=== PATIENT | female | born 1960 | race Caucasian/White ===

== ENCOUNTER 2017-05-05 18:26 | Inpatient (IN) ==
[2017-05-05] MEDS ORDERED: SALINE FLUSH 10ml SYRINGE IVF PRN (19:11)
[2017-05-05] MEDS ORDERED: DiltiaZEM 25 MG/5 ML INJECTION IVP ONE ×2 (19:40→20:52)
--- NOTE | 2017-05-05 19:47 | Emergency Department Report ---
General Adult HPI - General Chief complaint: Medical Emergency Stated complaint: High bp Time Seen by Provider: 05/05/17 18:57 Source: patient Mode of arrival: ambulatory Limitations: no limitations - History of Present Illness HPI narrative: Patient presents with a 2 day history of elevated blood pressure, low blood pressure, and an irregular fast pulse. Patient has had irregular pulses and irregular blood pressures at home, has a ringing in her ears, and is feeling "ill." Patient has had similar episodes occasionally, but never lasting this long nor this intense. Patient has no significant history that she knows of of irregular pulse her atrial fibrillation , but does see Dr. Ruiz routinely. - Related Data Home Medications Medication Instructions Recorded Confirmed Potassium Chloride 10 meq PO BID #0 10/30/10 05/05/17 Labetalol HCl 300 mg PO BID #0 08/07/13 05/05/17 Glucosamine HCl/Chondr Graff A Na 1 tab PO BID #0 04/08/15 05/05/17 [Osteo Bi-Flex Caplet] B2/Vits A,C,E/Lut/Zeaxanth/Min 1 tab PO BID #0 02/21/16 05/05/17 [Icaps Tablet] Indomethacin 50 mg PO DAILY #0 02/21/16 05/05/17 ALPRAZolam [Xanax] 1 mg PO HS 04/18/17 05/05/17 Acetaminophen [Acetaminophen Extra 1,000 mg PO Q6H PRN 04/18/17 05/05/17 Strength] Aspirin [Aspirin EC] 81 mg PO HS 04/18/17 05/05/17 Cholecalciferol (Vitamin D3) 2,000 unit PO HS 04/18/17 05/05/17 [Vitamin D3] Citalopram [Celexa] 10 mg PO HS 04/18/17 05/05/17 Hydralazine HCl 50 mg PO BID 04/18/17 05/05/17 Losartan [Cozaar] 100 mg PO HS 04/18/17 05/05/17 Multivit-Min/FA/Lycopen/Lutein 1 tab PO DAILY 04/18/17 05/05/17 [Centrum Silver Tablet] Aspirin/Acetaminophen/Caffeine 2 tab PO Q8H PRN 05/05/17 05/05/17 [Excedrin Migraine Caplet] Allergies Allergy/AdvReac Type Severity Reaction Status Date / Time nitrofurantoin Allergy Mild RASH Verified 05/05/17 17:35 Penicillins Allergy Mild RASH Verified 05/05/17 17:35 droperidol AdvReac Severe Severe Verified 05/05/17 17:35 Chemical Imbalance and Mental Problems codeine AdvReac Mild NAUSEA Verified 05/05/17 17:35 Review of Systems All systems: reviewed and negative except as stated PFSH Patient Stated Medical History Macular Degeneration Yes Other HEENT Yes: wears glasses Hypertension Yes Other Cardiology Yes: low potassium Sleep Apnea Yes Other Respiratory Yes: pulmonary htn Osteoarthritis Yes Depression Yes - Social History Smoking status: Never smoker Physical Exam - Limitations Limitations: no limitations - General General appearance: alert - Normal Exams: Head:: Normocephalic without trauma Eyes:: Pupils are PERRLA w/ EOMI, No scleral icterus, irritation, or foreign bodies noted ENMT:: No facial trauma, nasal exudates, pharyngeal erythema, or exudates are noted Neck:: Full range of motion, without adenopathy, JVD, bruits or thyromegaly Chest/Respirations:: Clear all velasco, with good airflow, and symmetry bilaterally Abdomen:: Bowel sounds positive, soft, non-tender, non-distended, no hepatosplenomegaly, masses or bruits noted Lymphatic:: No lymphadenopathy, or lymphedema noted Musculoskeletal:: No tenderness, or deformity noted, good range of motion, all extremities Integumentary:: No rashes, hives, or bruising noted, hair and nails, without abnormality Neurological:: Patient is alert, and oriented, cranial nerves, motor/sensory/ cerebellar, exams w/o gross deficits, to observation Psychiatric:: Patient exhibits, appropriate attention, emotion and affect - Cardiovascular Cardiovascular exam: Present: tachycardia, irregular rhythm (irregularly irregular tachycardia), normal heart sounds. Absent: regular rate, normal rhythm Course Vital Signs Temperature 98.2 F 05/05/17 18:30 Pulse Rate 129 H 05/05/17 18:30 Respiratory Rate 20 05/05/17 18:30 Blood Pressure 220/100 H 05/05/17 18:30 Pulse Oximetry 100 05/05/17 18:30 Temperature 98.2 F 05/05/17 18:30 Pulse Rate 136 H 05/05/17 19:54 Respiratory Rate 24 05/05/17 19:54 Blood Pressure 160/69 H 05/05/17 19:54 Pulse Oximetry 95 05/05/17 19:54 Medical Decision Making - MDM Narrative Medical decision making narrative: Patient is in an irregular tachyarrhythmia on the monitor EKG shows atrial fibrillation with RVR Patient given 1 L normal saline and 20 mg Cardizem IV - no significant improvement. Patient given additional 25 mg Cardizem IV - CBC - normal CMP - normal TSH - normal Patient persists in nature fibrillation with rapid ventricular rate. Case is discussed with Dr. Villanueva - will start on Cardizem drip, give one dose Lovenox here in the ER. - Lab Data Result diagrams: 05/05/17 19:42 05/05/17 19:42 Lab Results 05/05/17 05/05/17 05/05/17 Range/Units 19:42 19:42 19:42 WBC 10.0 (4.5-11.0) T/MM3 RBC 4.33 (4.00-5.20) M/MM3 Hgb 12.6 (12-16) GM/DL Hct 39.1 (36-46) % MCV 90.3 (80-100) UM3 MCH 29.1 (26-34) UUG MCHC 32.2 (31-37) GM/DL RDW Std Deviation 46.1 (36.9-50.2) FL Plt Count 347 (130-400) T/MM3 MPV 9.3 L (9.4-12.4) UM3 Immature Gran % (Auto) 0.2 (0.0-0.5) % Neut % (Auto) 74.5 H (33-66) % Lymph % (Auto) 16.5 L (23-45) % [place]ack[place]ord % (Auto) 7.8 (0-9.0) % Eos % (Auto) 0.9 (0-4) % Baso % (Auto) 0.1 (0-2) % Neut # (Auto) 7.4 (1.8-7.7) T/MM3 Lymph # (Auto) 1.7 (1-4.8) T/MM3 [place]ord # (Auto) 0.8 (0-0.8) T/MM3 Eos # (Auto) 0.1 (0-0.5) T/MM3 Baso # (Auto) 0.0 (0-0.2) T/MM3 Abs Immat Gran (auto) 0.02 (0.00-0.03) T/MM3 Turbidity < 20 (0-20) Sodium 143 (134-144) MEQ/L Potassium 3.9 (3.6-5) MEQ/L Chloride 108 H (98-107) MEQ/L Carbon Dioxide 24 (22-30) MEQ/L Anion Gap 11 (5-15) MEQ/L BUN 20.0 H (7-17) MG/DL Creatinine 0.8 (0.7-1.2) MG/DL GFR Calculation 74 BUN/Creatinine Ratio 25 (6-26) RATIO Glucose 111 H (65-110) MG/DL Calculated Osmolality 279 (261-280) MOSM/KG Calcium 9.5 (8.4-10.2) MG/DL Total Bilirubin 0.50 (0.20-1.30) MG/DL Conjugated Bilirubin 0.00 (0.00-0.30) MG/DL Unconjugated Bilirubin 0.20 (0.00-1.1) MG/DL Icterus Index < 2 (0-7) AST 21 (14-36) U/L ALT 44 (9-52) U/L Alkaline Phosphatase 138 H (38-126) U/L Total Protein 7.9 (6.3-8.2) G/DL Albumin 4.6 (3.5-5.0) G/DL Globulin 3.3 (2.4-3.6) G/DL Albumin/Globulin Ratio 1.4 (1.1-2.2) RATIO TSH 1.19 (0.47-4.68) MIU/L Specimen Hemolysis < 15 (0-25) Disposition Clinical Impression: Atrial fibrillation with RVR Disposition: 02 To [facility] Acute Care Condition: Stable Prescriptions: No Action Glucosamine HCl/Chondr Graff A Na [Osteo Bi-Flex Caplet] 1 tab PO BID #0 Hydralazine HCl 50 mg PO BID ALPRAZolam [Xanax] 1 mg PO HS Citalopram [Celexa] 10 mg PO HS Cholecalciferol (Vitamin D3) [Vitamin D3] 2,000 unit PO HS Losartan [Cozaar] 100 mg PO HS Aspirin [Aspirin EC] 81 mg PO HS Multivit-Min/FA/Lycopen/Lutein [Centrum Silver Tablet] 1 tab PO DAILY Aspirin/Acetaminophen/Caffeine [Excedrin Migraine Caplet] 2 tab PO Q8H PRN PRN Reason: Migraine Headache Potassium Chloride 10 meq PO BID #0 Labetalol HCl 300 mg PO BID #0 B2/Vits A,C,E/Lut/Zeaxanth/Min [Icaps Tablet] 1 tab PO BID #0 Indomethacin 50 mg PO DAILY #0 Acetaminophen [Acetaminophen Extra Strength] 1,000 mg PO Q6H PRN PRN Reason: Pain Referrals: Chance Ruiz MD [Primary Care Provider] - Leyla Reyes MD [Family Provider] - - Seen By: physician
[2017-05-05] MEDS ORDERED: NS 1,000 ML IV ONE (20:24)
[2017-05-05] MEDS ORDERED: ENOXAPARIN 40 MG/0.4 ML INJECTION SQ ONE (21:40)
[2017-05-05 22:59] VITALS: BMI 55.9
[2017-05-05] MEDS ORDERED: ACETAMINOPHEN 500 MG TABLET PO PRN (23:13)
[2017-05-05] MEDS ORDERED: AMIODARONE 150 MG in NS 100 ML IV ONE (23:34)
[2017-05-05] MEDS ORDERED: HYDRALAZINE 25 MG TABLET PO SCH (23:39)
[2017-05-05] MEDS ORDERED: AMIODARONE 450 MG in NS 500ml 250 ML IV SCH (23:45)
[2017-05-06] MEDS: ENOXAPARIN 150 MG/ML INJECTION SQ SCH ×2 (00:43→08:40)
[2017-05-06] MEDS: CITALOPRAM 10 MG TABLET PO SCH ×2 (00:44→21:42)
[2017-05-06] MEDS: LOSARTAN 100 MG TABLET PO SCH ×2 (00:46→21:43)
[2017-05-06] MEDS: LABETALOL 100 MG TABLET PO SCH ×3 (00:46→21:42)
[2017-05-06] MEDS: DiltiaZEM Drip 125 MG in NS 125 ML IV SCH (01:25)
[2017-05-06] MEDS: ACETAMINOPHEN 325 MG TABLET PO PRN ×2 (03:31→18:34)
[2017-05-06] MEDS ORDERED: AMIODARONE 900 MG in NS 500ml 500 ML IV SCH (07:15)
[2017-05-06] MEDS ORDERED: HYDRALAZINE 25 MG TABLET PO SCH (08:00)
[2017-05-06] MEDS: INDOMETHACIN 25 MG CAPSULE PO SCH (08:39)
--- NOTE | 2017-05-06 08:54 | XRay Report ---
Indication: a fib PROCEDURE: XR chest 1V: Encounter: Initial Comparison: August 07, 2013 Findings: The lungs are stable in appearance without new focal airspace consolidation. There is no pleural effusion or pneumothorax. Eventration of the right hemidiaphragm. The heart size, pulmonary vascularity and mediastinal contours are unchanged. IMPRESSION: Stable appearance of the chest without acute cardiopulmonary disease. .
[2017-05-06] MEDS ORDERED: NON-FORMULARY MEDICATION 1 EACH EACH (Hydralazine Hcl [Hydralazine Hcl] 50 MG) PO SCH (09:00)
[2017-05-06] MEDS ORDERED: NON-FORMULARY MEDICATION 1 EACH EACH (Labetalol Hcl [Labetalol Hcl] 300 MG) PO SCH (09:00)
--- NOTE | 2017-05-06 10:17 | Cardiology History & Physical ---
History of Present Illness Chief complaint: SOA, palpitations HPI: Soren is a 57 year old female who is known to Dr. Ruiz's practice with a history of pulmonary HTN, PVCs, HTN and MARIBEL who presented with a 2 day history of elevated blood pressure, low blood pressure, and an irregular fast pulse. She has had irregular pulses and irregular blood pressures at home, has a ringing in her ears, and reported feeling "ill." She has had similar episodes occasionally, but never lasting this long nor this intense. She has no significant history that she knows of of irregular pulse or atrial fibrillation , but does see Dr. Ruiz routinely. She reports 2 weeks of fatigue with occasional fluttering in her chest, SOA and feeling ill worsened yesterday leading to her visit to the ED. She denies fever , chills, sore throat, cough, chest pain or pressure, N/V/D. Review of Systems - Constitutional Constitutional: Present: fatigue. Absent: chills, fever(s) - EENMT Eyes: Absent: change in vision Balance: Absent: vertigo Mouth/Throat: Absent: sore throat - Cardiovascular Cardiovascular: Present: palpitations, dyspnea on exertion. Absent: chest pain , syncope, orthopnea, edema Vascular: Absent: pedal edema - Respiratory Respiratory: Present: dyspnea, dyspnea on exertion - Gastrointestinal Gastrointestinal: Absent: abdominal pain, diarrhea, nausea, vomiting - Genitourinary Genitourinary: Absent: dysuria - Integumentary/Breasts Integumentary: Absent: rash - Neurological Neurological: Absent: dizziness - Endocrine Endocrine: Present: palpitations PFSH Patient Stated Medical History Macular Degeneration Yes Other HEENT Yes: wears glasses Hypertension Yes Other Cardiology Yes: low potassium Sleep Apnea Yes Other Respiratory Yes: pulmonary htn Osteoarthritis Yes Depression Yes Post Menopausal Yes Surgical History: C section X3. bladder surgery. Cholecystectomy Family History: Paternal grandmother - 50s, unknown heart problem Brother - younger than patient, she heard he had a heart attack but they do not speak - Social History Smoking status: Former smoker Quit date: 04/26/85 Substance use type: does not use Alcohol intake frequency: former alcohol drinker Household members: none Current occupational status: employed Current residence: Apartment/Private Home Medications Home Medications Medication Instructions Recorded Confirmed Type Potassium Chloride 10 meq PO BID #0 10/30/10 05/05/17 History Labetalol HCl 300 mg PO BID #0 08/07/13 05/05/17 History Glucosamine HCl/Chondr Graff A Na 1 tab PO BID #0 04/08/15 05/05/17 History [Osteo Bi-Flex Caplet] B2/Vits A,C,E/Lut/Zeaxanth/Min 1 tab PO BID #0 02/21/16 05/05/17 History [Icaps Tablet] Indomethacin 50 mg PO DAILY #0 02/21/16 05/05/17 History ALPRAZolam [Xanax] 1 mg PO HS 04/18/17 05/05/17 History Acetaminophen [Acetaminophen Extra 1,000 mg PO Q6H PRN 04/18/17 05/05/17 History Strength] Aspirin [Aspirin EC] 81 mg PO HS 04/18/17 05/05/17 History Cholecalciferol (Vitamin D3) 2,000 unit PO HS 04/18/17 05/05/17 History [Vitamin D3] Citalopram [Celexa] 10 mg PO HS 04/18/17 05/05/17 History Hydralazine HCl 50 mg PO BID 04/18/17 05/05/17 History Losartan [Cozaar] 100 mg PO HS 04/18/17 05/05/17 History Multivit-Min/FA/Lycopen/Lutein 1 tab PO DAILY 04/18/17 05/05/17 History [Centrum Silver Tablet] Aspirin/Acetaminophen/Caffeine 2 tab PO Q8H PRN 05/05/17 05/05/17 History [Excedrin Migraine Caplet] Allergies Allergy/AdvReac Type Severity Reaction Status Date / Time nitrofurantoin Allergy Mild RASH Verified 05/05/17 17:35 Penicillins Allergy Mild RASH Verified 05/05/17 17:35 droperidol AdvReac Severe Severe Verified 05/05/17 17:35 Chemical Imbalance and Mental Problems codeine AdvReac Mild NAUSEA Verified 05/05/17 17:35 Exam Vital signs: Temperature 98.5 F 05/06/17 00:00 Pulse Rate 78 05/06/17 08:00 Respiratory Rate 15 05/06/17 07:00 Blood Pressure 148/67 H 05/06/17 07:00 Pulse Oximetry 95 05/06/17 07:00 - Constitutional mild distress, morbidly obese, cooperative - Routine HEENT Exam Head: Present: normocephalic ENT: Present: mucous membranes moist - Routine Neck Exam Present: supple. Absent: JVD, carotid bruit - Routine Chest/Breast/Axilla Exam Chest wall: Absent: tenderness, pacemaker - Routine Respiratory Exam Present: decreased breath sounds (anteriorly), CTA bilaterally. Absent: rales, wheezes - Routine Cardiovascular Exam Present: RRR, no murmur. Absent: JVD - Routine Abdominal Exam Present: soft, normoactive bowel sounds - Routine Extremities Exam Present: no edema, pulses intact - Routine Skin Exam Present: intact, dry, warm - Routine Neurological Exam Present: alert, oriented X3 - Routine Psychiatric Exam Present: normal affect, anxious Results 05/07/17 04:36 05/07/17 04:36 Cardiac Enzymes 05/06/17 05/06/17 Range/Units 02:03 09:02 Troponin I < 0.012 < 0.012 (0-0.12) ng/ml CBC 05/06/17 Range/Units 09:02 WBC 7.9 (4.5-11.0) T/MM3 RBC 3.81 L (4.00-5.20) M/MM3 Hgb 11.3 L (12-16) GM/DL Hct 35.1 L (36-46) % Plt Count 291 (130-400) T/MM3 Comprehensive Metabolic Panel 05/06/17 Range/Units 02:03 Sodium 144 (134-144) MEQ/L Potassium 3.4 L (3.6-5) MEQ/L Chloride 109 H (98-107) MEQ/L Carbon Dioxide 27 (22-30) MEQ/L BUN 15.0 (7-17) MG/DL Creatinine 0.8 (0.7-1.2) MG/DL Glucose 109 (65-110) MG/DL Calcium 8.7 D (8.4-10.2) MG/DL Intake and Output 05/05/17 05/06/17 05/06/17 22:59 06:59 14:59 Intake Total 237.987 / 237.987 360 / 360 Output Total 200 / 200 200 / 200 Balance -200 / -200 37.987 / 37.987 360 / 360 Intake: IV 237.987 / 237.987 Amiodarone 150 mg In Ns 100 ml 103 / 103 @ 618 mls/hr IV O ONE Rx#: [id number] Amiodarone 450 mg In NS 500ml 134.987 / 134.987 250 ml @ 1 MG/MIN 33.33 mls/hr IV .[id number] [facility] Rx#:[id number] Oral 360 / 360 Output: Urine 200 / 200 200 / 200 Other: Weight 305 lb 12.498 oz 281 lb 12.012 oz Patient Weight 05/07/17 06:59 Weight 281 lb 12.012 oz - Imaging and Cardiology Imaging & Cardiology Narrative: Date of Exam: 05/05/17 Ordering Provider: Ana Ramirez APRN Type of Exam(s): XR chest 1V Reason for Exam(s): a fib Indication: a fib PROCEDURE: XR chest 1V: Encounter: Initial Comparison: August 07, 2013 Findings: The lungs are stable in appearance without new focal airspace consolidation. There is no pleural effusion or pneumothorax. Eventration of the right hemidiaphragm. The heart size, pulmonary vascularity and mediastinal contours are unchanged. IMPRESSION: Stable appearance of the chest without acute cardiopulmonary disease. Date of Exam: 05/06/17 Type of Exam(s): US echo doppler complete DATE OF PROCEDURE May 06, 2017 This is a two-dimensional echo with spectral Doppler, color-flow and M-mode. It was obtained in a patient with atrial fibrillation. Left atrium is dilated. Left ventricular end-diastolic dimension is normal. Left ventricular wall thickness is increased. LV systolic function is hyperdynamic with ejection fraction of about 75%. Right atrium is dilated. Right ventricle is normal. Aortic root dimension is normal. Mitral valve is morphologically normal with [id number] mitral regurgitation. Aortic valve appears to be normal. Tricuspid valve shows mild tricuspid regurgitation with moderate pulmonary hypertension with estimated pulmonary artery systolic pressure of 60. Pulmonary valve was not visualized well. There is no pericardial effusion. IMPRESSION 1. Technically difficult study. 2. Biatrial dilation. 3. Concentric left ventricular hypertrophy. 4. Hyperdynamic left ventricle with ejection fraction of 75%. 5. Ynrg-[id number]-bodnufne mitral regurgitation. 6. Mild tricuspid regurgitation with moderate pulmonary hypertension with estimated pulmonary artery systolic pressure of 60. 05/07/17 11:27 EKG interpretations - EKG EKG results cardiology: sinus rhythm Hospital Course This is a general summary of the patient's hospital course. For more details refer to the complete medical record. Time spent with patient: 25 - 35 minutes DVT Prophylaxis: Lovenox, Pradaxa Assessment and Plan - Attestation Attestation Narrative: 05/07/17 13:11 Recommendation After examining the patient I agree with the above assessment. I am involved in the formulation of the patient's plan of care. - Assessment and Plan (1) Atrial fibrillation with RVR Current visit: Yes Status: Acute Converted after Cardizem given in ER - Started on Amiodarone bolus and drip - Anticoagulated on Lovenox 1mg/kg SQ Q12h, change to Pradaxa 150mg BID - EKG obtained to confirm - Echo obtained to check for structural / valvular disease - Check TSH and Mag - DC IV Amiodarone and Start Flecainide 100mg po X1 then 50mg BID - EKG in AM (2) Pulmonary hypertension Current visit: Yes Status: Chronic (3) Ventricular premature depolarization Current visit: Yes Status: Chronic (4) Essential (primary) hypertension Current visit: Yes Status: Chronic Suboptimal control. Increase Hydralazine to TID, Continue Labetalol and Losartan. (5) Sleep apnea Current visit: Yes Status: Chronic Use home C-PaP, PCP manages (6) Morbid obesity with BMI of 50.0-59.9, adult Current visit: Yes Status: Chronic Dietary consult for nutritional education. Patient is motivated to lose weight. - Assessment and Plan A Fib RVR: Converted after Cardizem given in ER - Started on Amiodarone bolus and drip - Anticoagulated on Lovenox 1mg/kg SQ Q12h, change to Pradaxa 150mg BID - EKG obtained to confirm - Echo obtained to check for structural / valvular disease - Check TSH and Mag - DC IV Amiodarone and Start Flecainide 100mg po X1 then 50mg BID - EKG in AM HTN: Suboptimal control. Increase Hydralazine to TID, Continue Labetalol and Losartan. MARIBEL: Use home C-PaP, PCP manages
[2017-05-06] MEDS ORDERED: FLECAINIDE 100 MG TABLET PO ONE (11:26)
--- NOTE | 2017-05-06 15:51 | Echocardiogram ---
DATE OF PROCEDURE May 06, 2017 This is a two-dimensional echo with spectral Doppler, color-flow and M-mode. It was obtained in a patient with atrial fibrillation. Left atrium is dilated. Left ventricular end-diastolic dimension is normal. Left ventricular wall thickness is increased. LV systolic function is hyperdynamic with ejection fraction of about 75%. Right atrium is dilated. Right ventricle is normal. Aortic root dimension is normal. Mitral valve is morphologically normal with [id number] mitral regurgitation. Aortic valve appears to be normal. Tricuspid valve shows mild tricuspid regurgitation with moderate pulmonary hypertension with estimated pulmonary artery systolic pressure of 60. Pulmonary valve was not visualized well. There is no pericardial effusion. IMPRESSION 1. Technically difficult study. 2. Biatrial dilation. 3. Concentric left ventricular hypertrophy. 4. Hyperdynamic left ventricle with ejection fraction of 75%. 5. [id number] mitral regurgitation. 6. Mild tricuspid regurgitation with moderate pulmonary hypertension with estimated pulmonary artery systolic pressure of 60. MTDD
[2017-05-06] MEDS: HYDRALAZINE 25 MG TABLET PO SCH (18:26)
[2017-05-06] MEDS ORDERED: ALPRAZolam 1 MG TABLET PO SCH (21:00)
[2017-05-06] MEDS: FLECAINIDE 50 MG TABLET PO SCH (21:42)
[2017-05-06] MEDS ORDERED: HYDRALAZINE 20 MG/ML INJECTION IVP PRN (23:07)
[2017-05-07] MEDS: DiltiaZEM Drip 125 MG in NS 125 ML IV SCH (02:19)
[2017-05-07 07:27] VITALS: RESP 16; O2SAT 96
[2017-05-07] MEDS: FLECAINIDE 50 MG TABLET PO SCH (08:28)
[2017-05-07] MEDS: LABETALOL 100 MG TABLET PO SCH (08:28)
[2017-05-07] MEDS: HYDRALAZINE 25 MG TABLET PO SCH ×2 (08:28→12:06)
[2017-05-07] MEDS: INDOMETHACIN 25 MG CAPSULE PO SCH (08:28)
[2017-05-07 11:22] VITALS: BP 161/83; PULSE 78; TEMP 97.7
--- NOTE | 2017-05-07 11:31 | Discharge Summary ---
<Ana Ramirez - Last Filed: 05/07/17 11:28> Discharge Information Date of admission: 05/06/17 12:20 Anticipated date of discharge: 05/07/17 Attending Physician: Justin Villanueva MD Primary care physician: MD Leyla Amaro MD Consults: 05/07/17 10:58 Dietary Consult [CONS] Routine Comment: Reason For Exam: teaching for weight loss - Discharge Diagnosis (1) Atrial fibrillation with RVR Status: Acute (2) Pulmonary hypertension Status: Chronic (3) Ventricular premature depolarization Status: Chronic (4) Essential (primary) hypertension Status: Chronic (5) Sleep apnea Status: Chronic (6) Morbid obesity with BMI of 50.0-59.9, adult Status: Acute Atrial fibrillation - Laboratory Labs: 05/07/17 04:36 05/07/17 04:36 Laboratory Results - last 48 hr 05/05/17 05/05/17 05/05/17 16:42 16:42 19:42 WBC 10.0 RBC 4.33 Hgb 12.6 Hct 39.1 MCV 90.3 MCH 29.1 MCHC 32.2 RDW Std Deviation 46.1 Plt Count 347 MPV 9.3 L Immature Gran % (Auto) 0.2 Neut % (Auto) 74.5 H Lymph % (Auto) 16.5 L Runnels % (Auto) 7.8 Eos % (Auto) 0.9 Baso % (Auto) 0.1 Neut # (Auto) 7.4 Lymph # (Auto) 1.7 Runnels # (Auto) 0.8 Eos # (Auto) 0.1 Baso # (Auto) 0.0 Abs Immat Gran (auto) 0.02 Turbidity Sodium Potassium Chloride Carbon Dioxide Anion Gap BUN Creatinine GFR Calculation BUN/Creatinine Ratio Glucose Calculated Osmolality Calcium Magnesium 2.3 Total Bilirubin Conjugated Bilirubin Unconjugated Bilirubin Icterus Index AST ALT Alkaline Phosphatase Troponin I < 0.012 Total Protein Albumin Globulin Albumin/Globulin Ratio TSH Specimen Hemolysis < 15 05/05/17 05/05/17 05/06/17 19:42 19:42 02:03 WBC RBC Hgb Hct MCV MCH MCHC RDW Std Deviation Plt Count MPV Immature Gran % (Auto) Neut % (Auto) Lymph % (Auto) Runnels % (Auto) Eos % (Auto) Baso % (Auto) Neut # (Auto) Lymph # (Auto) Runnels # (Auto) Eos # (Auto) Baso # (Auto) Abs Immat Gran (auto) Turbidity < 20 < 20 Sodium 143 144 Potassium 3.9 3.4 L Chloride 108 H 109 H Carbon Dioxide 24 27 Anion Gap 11 8 BUN 20.0 H 15.0 Creatinine 0.8 0.8 GFR Calculation 74 74 BUN/Creatinine Ratio 25 19 Glucose 111 H 109 Calculated Osmolality 279 279 Calcium 9.5 8.7 D Magnesium Total Bilirubin 0.50 Conjugated Bilirubin 0.00 Unconjugated Bilirubin 0.20 Icterus Index < 2 < 2 AST 21 ALT 44 Alkaline Phosphatase 138 H Troponin I < 0.012 Total Protein 7.9 Albumin 4.6 Globulin 3.3 Albumin/Globulin Ratio 1.4 TSH 1.19 Specimen Hemolysis < 15 < 15 05/06/17 05/06/17 05/06/17 09:02 09:02 09:02 WBC 7.9 RBC 3.81 L Hgb 11.3 L Hct 35.1 L MCV 92.1 MCH 29.7 MCHC 32.2 RDW Std Deviation 47.9 Plt Count 291 MPV 8.8 L Immature Gran % (Auto) Neut % (Auto) Lymph % (Auto) Runnels % (Auto) Eos % (Auto) Baso % (Auto) Neut # (Auto) Lymph # (Auto) Runnels # (Auto) Eos # (Auto) Baso # (Auto) Abs Immat Gran (auto) Turbidity Sodium Potassium Chloride Carbon Dioxide Anion Gap BUN Creatinine GFR Calculation BUN/Creatinine Ratio Glucose Calculated Osmolality Calcium Magnesium 2.0 Total Bilirubin Conjugated Bilirubin Unconjugated Bilirubin Icterus Index AST ALT Alkaline Phosphatase Troponin I < 0.012 Total Protein Albumin Globulin Albumin/Globulin Ratio TSH Specimen Hemolysis < 15 05/07/17 05/07/17 04:36 04:36 WBC 8.0 RBC 3.78 L Hgb 11.1 L Hct 34.9 L MCV 92.3 MCH 29.4 MCHC 31.8 RDW Std Deviation 47.4 Plt Count 286 MPV 9.2 L Immature Gran % (Auto) Neut % (Auto) Lymph % (Auto) Runnels % (Auto) Eos % (Auto) Baso % (Auto) Neut # (Auto) Lymph # (Auto) Runnels # (Auto) Eos # (Auto) Baso # (Auto) Abs Immat Gran (auto) Turbidity < 20 Sodium 144 Potassium 3.4 L Chloride 106 Carbon Dioxide 28 Anion Gap 10 BUN 15.0 Creatinine 0.8 GFR Calculation 74 BUN/Creatinine Ratio 19 Glucose 93 Calculated Osmolality 278 Calcium 9.0 Magnesium 2.3 Total Bilirubin Conjugated Bilirubin Unconjugated Bilirubin Icterus Index < 2 AST ALT Alkaline Phosphatase Troponin I Total Protein Albumin Globulin Albumin/Globulin Ratio TSH Specimen Hemolysis < 15 - Radiology Radiology: Date of Exam: 05/06/17 Type of Exam(s): US echo doppler complete DATE OF PROCEDURE May 06, 2017 This is a two-dimensional echo with spectral Doppler, color-flow and M-mode. It was obtained in a patient with atrial fibrillation. Left atrium is dilated. Left ventricular end-diastolic dimension is normal. Left ventricular wall thickness is increased. LV systolic function is hyperdynamic with ejection fraction of about 75%. Right atrium is dilated. Right ventricle is normal. Aortic root dimension is normal. Mitral valve is morphologically normal with [id number] mitral regurgitation. Aortic valve appears to be normal. Tricuspid valve shows mild tricuspid regurgitation with moderate pulmonary hypertension with estimated pulmonary artery systolic pressure of 60. Pulmonary valve was not visualized well. There is no pericardial effusion. IMPRESSION 1. Technically difficult study. 2. Biatrial dilation. 3. Concentric left ventricular hypertrophy. 4. Hyperdynamic left ventricle with ejection fraction of 75%. 5. [id number]-[id number] mitral regurgitation. 6. Mild tricuspid regurgitation with moderate pulmonary hypertension with estimated pulmonary artery systolic pressure of 60. Date of Exam: 05/05/17 Ordering Provider: Ana Ramirez APRN Type of Exam(s): XR chest 1V Reason for Exam(s): a fib Indication: a fib PROCEDURE: XR chest 1V: Encounter: Initial Comparison: August 07, 2013 Findings: The lungs are stable in appearance without new focal airspace consolidation. There is no pleural effusion or pneumothorax. Eventration of the right hemidiaphragm. The heart size, pulmonary vascularity and mediastinal contours are unchanged. IMPRESSION: Stable appearance of the chest without acute cardiopulmonary disease. History of Present Illness HPI: Soren is a 57 year old female who is known to Dr. Ruiz's practice with a history of pulmonary HTN, PVCs, HTN and MARIBEL who presented with a 2 day history of elevated blood pressure, low blood pressure, and an irregular fast pulse. She has had irregular pulses and irregular blood pressures at home, has a ringing in her ears, and reported feeling "ill." She has had similar episodes occasionally, but never lasting this long nor this intense. She has no significant history that she knows of of irregular pulse or atrial fibrillation , but does see Dr. Ruiz routinely. She reports 2 weeks of fatigue with occasional fluttering in her chest, SOA and feeling ill worsened yesterday leading to her visit to the ED. She denies fever , chills, sore throat, cough, chest pain or pressure, N/V/D. Hospital Course This is a general summary of the patient's hospital course. For more details refer to the complete medical record. Time spent with patient: 25 - 35 minutes DVT Prophylaxis: Pradaxa Exam Vital signs: Temperature 97.7 F 05/07/17 11:15 Pulse Rate 78 05/07/17 11:15 Respiratory Rate 16 05/07/17 11:15 Blood Pressure 161/83 H 05/07/17 11:18 Pulse Oximetry 96 05/07/17 11:15 - Constitutional mild distress, morbidly obese, cooperative - Routine HEENT Exam Head: Present: normocephalic ENT: Present: mucous membranes moist - Routine Neck Exam Absent: JVD, carotid bruit - Routine Chest/Breast/Axilla Exam Chest wall: Absent: tenderness - Routine Respiratory Exam Present: decreased breath sounds, CTA bilaterally. Absent: rales, wheezes - Routine Cardiovascular Exam Present: RRR, no murmur. Absent: JVD - Routine Abdominal Exam Present: soft, normoactive bowel sounds - Routine Extremities Exam Present: no edema - Routine Skin Exam Present: intact, dry, warm - Routine Neurological Exam Present: alert, oriented X3 - Routine Psychiatric Exam Present: normal affect, anxious Results 05/07/17 04:36 05/07/17 04:36 CBC 05/07/17 Range/Units 04:36 WBC 8.0 (4.5-11.0) T/MM3 RBC 3.78 L (4.00-5.20) M/MM3 Hgb 11.1 L (12-16) GM/DL Hct 34.9 L (36-46) % Plt Count 286 (130-400) T/MM3 Comprehensive Metabolic Panel 05/07/17 Range/Units 04:36 Sodium 144 (134-144) MEQ/L Potassium 3.4 L (3.6-5) MEQ/L Chloride 106 (98-107) MEQ/L Carbon Dioxide 28 (22-30) MEQ/L BUN 15.0 (7-17) MG/DL Creatinine 0.8 (0.7-1.2) MG/DL Glucose 93 (65-110) MG/DL Calcium 9.0 (8.4-10.2) MG/DL Intake and Output 05/06/17 05/07/17 05/07/17 22:59 06:59 14:59 Intake Total 400 / 400 200 / 200 Balance 400 / 400 200 / 200 Intake: Oral 400 / 400 200 / 200 Other: Stool Color Brown Stool Consistency Soft Size of Bowel Movement Moderate # Voids 3 1 # Bowel Movements 3 Weight 304 lb 7.334 oz Patient Weight 05/08/17 06:59 Weight 304 lb 7.334 oz Discharge Plan - Med Rec/Dispo Referrals/Follow Up: Chance Ruiz MD [Primary Care Provider] - 05/19/17 1:10 pm Ruthann Instructions: Flecainide (By mouth) (Tambocor), A-fib (Atrial Fibrillation) (DC) Prescriptions: New Dabigatran [Pradaxa] 150 mg PO BID #60 cap Flecainide [Tambocor] 50 mg PO BID #60 tab Hydralazine [Apresoline] 50 mg PO TIDWM #90 tab Potassium Chloride [Micro-K] 10 meq PO TIDWM #90 cap Continue Glucosamine HCl/Chondr Graff A Na [Osteo Bi-Flex Caplet] 1 tab PO BID #0 ALPRAZolam [Xanax] 1 mg PO HS Citalopram [Celexa] 10 mg PO HS Cholecalciferol (Vitamin D3) [Vitamin D3] 2,000 unit PO HS Losartan [Cozaar] 100 mg PO HS Multivit-Min/FA/Lycopen/Lutein [Centrum Silver Tablet] 1 tab PO DAILY Aspirin/Acetaminophen/Caffeine [Excedrin Migraine Caplet] 2 tab PO Q8H PRN PRN Reason: Migraine Headache Labetalol HCl 300 mg PO BID #0 B2/Vits A,C,E/Lut/Zeaxanth/Min [Icaps Tablet] 1 tab PO BID #0 Indomethacin 50 mg PO DAILY #0 Acetaminophen [Acetaminophen Extra Strength] 1,000 mg PO Q6H PRN PRN Reason: Pain Discontinued Hydralazine HCl 50 mg PO BID Aspirin [Aspirin EC] 81 mg PO HS Potassium Chloride 10 meq PO BID #0 - Disposition 01 Discharged Home, Self-Care <Chance Ruiz - Last Filed: 05/12/17 11:46> Discharge Information Date of admission: 05/06/17 12:20 Attending Physician: Justin Villanueva MD Primary care physician: MD Leyla Amaro MD Consults: 05/07/17 10:58 Dietary Consult [CONS] Routine Comment: Reason For Exam: teaching for weight loss - Discharge Diagnosis (1) Atrial fibrillation with RVR Status: Acute (2) Pulmonary hypertension Status: Chronic (3) Ventricular premature depolarization Status: Chronic (4) Essential (primary) hypertension Status: Chronic (5) Sleep apnea Status: Chronic (6) Morbid obesity with BMI of 50.0-59.9, adult Status: Chronic - Laboratory Labs: 05/07/17 04:36 05/07/17 04:36 Hospital Course This is a general summary of the patient's hospital course. For more details refer to the complete medical record. Exam Vital signs: Temperature 97.7 F 05/07/17 11:15 Pulse Rate 78 05/07/17 11:15 Respiratory Rate 16 05/07/17 11:15 Blood Pressure 161/83 H 05/07/17 11:18 Pulse Oximetry 96 05/07/17 11:15 Results 05/07/17 04:36 05/07/17 04:36 Attestation Narriative - Attestation Attestation Narrative: 05/12/17 11:46 Recommendation After examining the patient I agree with the above assessment. I am involved in the formulation of the patient's plan of care.
== END 2017-05-07 15:40 | disposition home or self-care (01) | DRG 309 ==
LOC: ED 18:26 → INTOOBSV 21:41 → CCU 21:41 → SRG 05-06 12:19
PROVIDERS: ADMIT Internal Medicine Interventional Cardiology; ATTEND Internal Medicine Interventional Cardiology

== ENCOUNTER 2017-11-17 20:04 | Inpatient (IN) ==
[2017-11-17] MEDS ORDERED: SALINE FLUSH 10ml SYRINGE IVF PRN (20:14)
[2017-11-17] MEDS ORDERED: DiltiaZEM 25 MG/5 ML INJECTION IVP ONE ×2 (20:15→21:09)
--- NOTE | 2017-11-17 20:20 | Emergency Department Report ---
Cardiac General HPI - General Stated Complaint: Poss Afib Time Seen by Provider: 11/17/17 20:13 Source: patient Mode of arrival: ambulatory Limitations: no limitations - History of Present Illness HPI narrative: Patient has been in and out of A. fib all day, and has been in persistent A. fib for several hours. Patient had similar episode with her first A. fib/RVR back in April of this year, she is on labetalol 300 mg nightly, and flecainide. She had a few similar episodes last month, and discussed with Dr. Andujar about possibly increasing her flecainide, but since the episodes were self-limited and widely dispersed they decided not to increase her medicine at that time. Currently patient has had some sweating at home, but no dizziness, lightheadedness, chest pain or pressure, or abdominal complaints. - Related Data Home Medications Medication Instructions Recorded Confirmed Labetalol HCl 300 mg PO BID #0 08/07/13 11/17/17 Glucosamine HCl/Chondr Graff A Na 1 tab PO BID #0 04/08/15 11/17/17 [Osteo Bi-Flex Caplet] ALPRAZolam [Xanax] 1 mg PO HS 04/18/17 11/17/17 Citalopram [Celexa] 10 mg PO HS 04/18/17 11/17/17 Losartan [Cozaar] 100 mg PO HS 04/18/17 11/17/17 Multivit-Min/FA/Lycopen/Lutein 1 tab PO DAILY 04/18/17 11/17/17 [Centrum Silver Tablet] Hydralazine [Apresoline] 25 mg PO TID 05/17/17 11/17/17 Cholecalciferol (Vitamin D3) 1,000 unit PO DAILY 11/17/17 11/17/17 [Vitamin D3] Vit A/Vit C/Vit E/Zinc/Copper 1 tab PO BID 11/17/17 11/17/17 [Preservision Areds Tablet] Previous Rx's Medication Instructions Recorded Dabigatran [Pradaxa] 150 mg PO BID #60 cap 05/07/17 Flecainide [Tambocor] 50 mg PO BID #60 tab 05/07/17 Potassium Chloride [MICRO-K 10 mEq 10 meq PO TIDWM #90 cap 05/07/17 Capsule] Allergies Allergy/AdvReac Type Severity Reaction Status Date / Time nitrofurantoin Allergy Mild RASH Verified 11/17/17 20:20 Penicillins Allergy Mild RASH Verified 11/17/17 20:20 droperidol AdvReac Severe Severe Verified 11/17/17 20:20 Chemical Imbalance and Mental Problems codeine AdvReac Mild NAUSEA Verified 11/17/17 20:20 Review of Systems All systems: reviewed and negative except as stated PFSH Patient Stated Medical History Macular Degeneration Yes Other HEENT Yes: wears glasses Hypertension Yes Other Cardiology Yes: low potassium Sleep Apnea Yes Other Respiratory Yes: pulmonary htn Osteoarthritis Yes Depression Yes Post Menopausal Yes Now No Clinic Medical History (Last Reviewed 09/01/17 @ 14:40 by Zafar Monet MD) Posterior tibial tendonitis of right leg (Chronic Medical) Arthritis of both knees (Chronic Medical) Anxiety (Acute Medical) Depression (Acute Medical) Hypertension (Acute Medical) Inflammatory bowel disease (Acute Medical) Macular degeneration (Acute Medical) Obstructive sleep apnea (Acute Medical) Secondary pulmonary hypertension (Acute Medical) Atrial Fibrillation with RVR Surgical History: C section X3. bladder surgery. Cholecystectomy Family History: Family History (Last Reviewed 09/01/17 @ 14:40 by Zafar Monet MD) Mother Melanoma Brother Melanoma Maternal Grandmother Diabetes Paternal Grandmother Pancreatic cancer - Social History Smoking status: Former smoker Quit date: 04/26/85 Substance use type: does not use Alcohol intake frequency: former alcohol drinker Household members: none Current occupational status: employed Current residence: Apartment/Private Home Physical Exam - Limitations Limitations: no limitations - General General appearance: alert, anxious - Normal Exams: Head:: Normocephalic without trauma Eyes:: Pupils are PERRLA w/ EOMI, No scleral icterus, irritation, or foreign bodies noted ENMT:: No facial trauma, nasal exudates, pharyngeal erythema, or exudates are noted Neck:: Full range of motion, without adenopathy, JVD, bruits or thyromegaly Chest/Respirations:: Clear all velasco, with good airflow, and symmetry bilaterally Cardiovascular:: without murmur or gallop, Pulses 2+ all extremities, capillary refill, <2 seconds all extremities Abdomen:: Bowel sounds positive, soft, non-tender, non-distended, no hepatosplenomegaly, masses or bruits noted Lymphatic:: No lymphadenopathy, or lymphedema noted Musculoskeletal:: No tenderness, or deformity noted, good range of motion, all extremities Integumentary:: No rashes, hives, or bruising noted, hair and nails, without abnormality Neurological:: Patient is alert, and oriented, cranial nerves, motor/sensory/ cerebellar, exams w/o gross deficits, to observation Psychiatric:: Patient exhibits, appropriate attention, emotion and affect - Cardiovascular Cardiovascular exam: Present: tachycardia, irregular rhythm, normal heart sounds Course Vital Signs Temperature 99.0 F 11/17/17 20:08 Pulse Rate 126 H 11/17/17 20:08 Respiratory Rate 22 11/17/17 20:08 Blood Pressure 188/103 H 11/17/17 20:08 Pulse Oximetry 97 11/17/17 20:08 Temperature 99.0 F 11/17/17 20:08 Pulse Rate 80 11/17/17 20:42 Respiratory Rate 16 11/17/17 20:42 Blood Pressure 126/57 11/17/17 20:42 Pulse Oximetry 96 11/17/17 20:42 Cardiac General - MDM Narrative Medical decision making narrative: Patient is given Cardizem 25 mg, 1 L normal saline IV fluid bolus EKG shows atrial fibrillation with rapid ventricular response at 129 CBC, CMP, troponin all normal. Patient has had adequate rate control with one dose of Cardizem, however as I'm talking to the patient about possible hospital admission her heart rate jumps into the 100s and has stayed there. We'll give one additional dose of Cardizem. After talking with Dr. Villanueva we will admit to medical telemetry, give one additional dose of flecainide, and reassess in the morning. - Lab Data Result diagrams: 11/17/17 20:28 11/17/17 20:28 Lab Results 11/17/17 11/17/17 Range/Units 20:28 20:28 WBC 8.5 (4.5-11.0) T/MM3 RBC 4.58 (4.00-5.20) M/MM3 Hgb 13.7 (12-16) GM/DL Hct 41.5 (36-46) % MCV 90.6 (80-100) UM3 MCH 29.9 (26-34) UUG MCHC 33.0 (31-37) GM/DL RDW Std Deviation 45.6 (36.9-50.2) FL Plt Count 312 (130-400) T/MM3 MPV 9.0 L (9.4-12.4) UM3 Immature Gran % (Auto) 0.1 (0.0-0.5) % Neut % (Auto) 68.6 H (33-66) % Lymph % (Auto) 22.2 L (23-45) % Weld % (Auto) 7.4 (0-9.0) % Eos % (Auto) 1.6 (0-4) % Baso % (Auto) 0.1 (0-2) % Neut # (Auto) 5.8 (1.8-7.7) T/MM3 Lymph # (Auto) 1.9 (1-4.8) T/MM3 Weld # (Auto) 0.6 (0-0.8) T/MM3 Eos # (Auto) 0.1 (0-0.5) T/MM3 Baso # (Auto) 0.0 (0-0.2) T/MM3 Abs Immat Gran (auto) 0.01 (0.00-0.03) T/MM3 Turbidity < 20 (0-20) Sodium 145 (136-146) MEQ/L Potassium 4.1 (3.6-5) MEQ/L Chloride 108 H (98-107) MEQ/L Carbon Dioxide 24 (22-30) MEQ/L Anion Gap 13 (5-15) meq/L BUN 12.0 (7-17) MG/DL Creatinine 0.8 (0.7-1.2) mg/dL GFR Calculation 74 BUN/Creatinine Ratio 15 (6-26) RATIO Glucose 111 H (65-110) MG/DL Calculated Osmolality 280 (261-280) MOSM/KG Calcium 9.7 (8.4-10.2) MG/DL Total Bilirubin 0.50 (0.20-1.30) MG/DL Conjugated Bilirubin 0.00 (0.00-0.30) mg/dL Unconjugated Bilirubin 0.50 (0.00-1.1) mg/dL Icterus Index < 2 (0-7) AST 22 (14-36) U/L ALT 23 (1-35) U/L Alkaline Phosphatase 116 (38-126) U/L Troponin I < 0.012 (0-0.12) ng/ml Total Protein 7.8 (6.3-8.2) g/dL Albumin 4.8 (3.5-5.0) g/dL Globulin 3.0 (2.4-3.6) G/DL Albumin/Globulin Ratio 1.6 (1.1-2.2) RATIO Specimen Hemolysis < 15 (0-25) Disposition Clinical Impression: Atrial fibrillation with RVR Disposition: [facility] Condition: Improved Prescriptions: No Action Glucosamine HCl/Chondr Graff A Na [Osteo Bi-Flex Caplet] 1 tab PO BID #0 ALPRAZolam [Xanax] 1 mg PO HS Citalopram [Celexa] 10 mg PO HS Losartan [Cozaar] 100 mg PO HS Multivit-Min/FA/Lycopen/Lutein [Centrum Silver Tablet] 1 tab PO DAILY Dabigatran [Pradaxa] 150 mg PO BID #60 cap Flecainide [Tambocor] 50 mg PO BID #60 tab Potassium Chloride [MICRO-K 10 mEq Capsule] 10 meq PO TIDWM #90 cap Hydralazine [Apresoline] 25 mg PO TID Vit A/Vit C/Vit E/Zinc/Copper [Preservision Areds Tablet] 1 tab PO BID Cholecalciferol (Vitamin D3) [Vitamin D3] 1,000 unit PO DAILY Labetalol HCl 300 mg PO BID #0 Referrals: Leyla Reyes MD [Primary Care Provider] - - Seen By: physician
[2017-11-17] MEDS ORDERED: NS 1,000 ML IV ONE (20:22)
--- OUTSIDE RECORDS SUMMARY | 2017-11-17 21:07 | External Medical Summary | Referral Summary ---
:1960 Author Organization [facility] (Former[facility] Address [address] [place] [address] Care Team Providers Name Role Phone ReyesLeyla Primary Care Physician Yadi Zuluaga Primary Care Physician Encounter VC Date(s): 07/27/17 - 07/30/17 [facility] ([facility] [address] [place] [address] [place] [phone] Discharge Disposition: 01-Home or Self Care Attending Physician: Richard Khan MD Admitting Physician: Bertha Aviles MD Vital Signs Most recent to oldest [Reference Range]: 1 Temperature Oral [35.8-37.3 degC] 36.7 degC (07/30/17 10:40 AM) Temperature Skin [36-37 degC] 37 degC (07/29/17 4:45 PM) Peripheral Pulse Rate [60-100 bpm] 78 bpm (07/30/17 10:40 AM) Heart Rate Monitored [60-100 bpm] 85 bpm (07/29/17 4:45 PM) Respiratory Rate [14-20 br/min] 16 br/min (07/30/17 10:40 AM) Blood Pressure [90-140/60-90 mmHg] 128/84 mmHg (07/30/17 10:40 AM) Mean Arterial Pressure, Cuff 100 mmHg (07/29/17 4:45 PM) SpO2 92 % (07/30/17 10:40 AM) Remote Telemetry Discontinued (07/30/17 9:32 AM) Problem List Condition Effective Dates Status Health Status Informant Acute pain(Confirmed) Active Afib(Confirmed) Active Bleeding precautions(Confirmed)1 Active HTN (hypertension)(Confirmed) Active Pulmonary HTN(Confirmed) Active 1Problem added automatically by system based on initiation of Bleeding Precautions Plan of Care Allergies, Adverse Reactions, Alerts Substance Reaction Severity Status codeine Vomiting Active penicillin Adverse Reaction Active Medications ALPRAZolam 1 mg, Oral, Bedtime (once a day), 0 Refill(s) Start Date: 07/28/17 Status: OrderedCentrum Silver oral tablet 1 tabs, Oral, Daily, 0 Refill(s) Start Date: 07/28/17 Status: Orderedcitalopram 10 mg, Oral, Bedtime (once a day), 0 Refill(s) Start Date: 07/28/17 Status: Orderedflecainide 50 mg, Oral, BID, 0 Refill(s) Start Date: 07/28/17 Status: OrderedhydrALAZINE 25 mg, Oral, TID, 0 Refill(s) Start Date: 07/28/17 Status: Orderedlabetalol 300 mg, Oral, BID, 0 Refill(s) Start Date: 07/28/17 Status: Orderedlosartan 100 mg, Oral, Bedtime (once a day), 0 Refill(s) Start Date: 07/28/17 Status: OrderedOsteo Bi-Flex 1 tabs, Oral, BID, 0 Refill(s) Start Date: 07/28/17 Status: Orderedpotassium chloride 10 mEq oral capsule, extended release 10 mEq 1 caps, Oral, TID, 0 Refill(s) Start Date: 07/28/17 Status: OrderedPradaxa 150 mg, Oral, BID, 0 Refill(s) Start Date: 07/28/17 Status: OrderedPreserVision 1 tabs, Oral, BID, 0 Refill(s) Start Date: 07/28/17 Status: OrderedVitamin D3 1,000 Intl_Units, Oral, Bedtime (once a day), 0 Refill(s) Start Date: 07/28/17 Status: Ordered Results Hematology Most recent to oldest [Reference Range]: 1 WBC [4.8-10.8 10*3/uL] 7.1 10*3/uL (07/30/17 6:25 AM) RBC [4.00-5.20] 3.93 *LOW* (07/30/17 6:25 AM) Hgb [12.0-16.0 gm/dL] 11.6 gm/dL *LOW* (07/30/17 6:25 AM) Hct [37.0-47.0 %] 35.4 % *LOW* (07/30/17 6:25 AM) MCV [82.0-99.0 fL] 90.1 fL (07/30/17 6:25 AM) MCH [27.0-32.0 pg] 29.5 pg (07/30/17 6:25 AM) MCHC [32.0-36.0 gm/dL] 32.8 gm/dL (07/30/17 6:25 AM) RDW [11.5-14.5 %] 15.3 % *HI* (07/30/17 6:25 AM) Platelet [150-400 10*3/uL] 224 10*3/uL (07/30/17 6:25 AM) MPV [9.4-12.4 fL] 8.9 fL *LOW* (07/30/17 6:25 AM) Immature Granulocytes [0.0-1.0 %] 0.3 % (07/30/17 6:25 AM) Neutrophils [51-75 %] 63 % (07/30/17 6:25 AM) Lymphocytes [20-46 %] 22 % (07/30/17 6:25 AM) Monocytes [4-11 %] 11 % (07/30/17 6:25 AM) Eosinophils [0-4 %] 3 % (07/30/17 6:25 AM) Basophils [0-2 %] 0 % (07/30/17 6:25 AM) Neutro Absolute [1.90-7.00] 4.49 (07/30/17 6:25 AM) Lymph Absolute [0.80-3.30] 1.58 (07/30/17 6:25 AM) [place] Absolute [0.30-1.00] 0.79 (07/30/17 6:25 AM) Eos Absolute [0.00-0.50] 0.19 (07/30/17 6:25 AM) Baso Absolute [0.00-0.20] 0.01 (07/30/17 6:25 AM) Nucleated RBC Automated [0 /100 WBC] 0.0 /100 WBC (07/30/17 6:25 AM) Coagulation Most recent to oldest [Reference Range]: 1 INR [0.9-1.2] 1.1 (07/28/17 3:16 AM) PTT [25.0-35.0 seconds] 41.0 seconds *HI* (07/28/17 3:16 AM) Chemistry Most recent to oldest [Reference Range]: 1 Sodium Lvl [136-144 mEq/L] 140 mEq/L (07/30/17 6:25 AM) Potassium Lvl [3.6-5.1 mEq/L] 3.6 mEq/L (07/30/17 6:25 AM) Chloride [99-109 mEq/L] 105 mEq/L (07/30/17 6:25 AM) CO2 [22-32 mEq/L] 27 mEq/L (07/30/17 6:25 AM) AGAP [3-20 mEq/L] 8 mEq/L (07/30/17 6:25 AM) BUN [4-20 mg/dL] 11 mg/dL (07/30/17 6:25 AM) Glucose Lvl [70-100 mg/dL] 93 mg/dL (07/30/17 6:25 AM) Creatinine Lvl [0.44-1.03 mg/dL] 0.91 mg/dL (07/30/17 6:25 AM) eGFR [>60 mL/min] >60 mL/min 1 (07/30/17 6:25 AM) Calcium Lvl [8.6-10.0 mg/dL] 9.0 mg/dL (07/30/17 6:25 AM) Albumin Lvl [3.5-4.8 gm/dL] 3.3 gm/dL *LOW* (07/30/17 6:25 AM) Total Protein [6.1-7.9 gm/dL] 6.9 gm/dL (07/27/17 8:00 PM) Globulin [1.9-4.3 gm/dL] 2.6 gm/dL (07/27/17 8:00 PM) ALT [14-54 U/L] 24 U/L (07/27/17 8:00 PM) AST [15-41 U/L] 25 U/L (07/27/17 8:00 PM) Alk Phos [26-104 U/L] 91 U/L (07/27/17 8:00 PM) Bili Total [0.2-1.2 mg/dL] 0.6 mg/dL 2 (07/27/17 8:00 PM) Magnesium Lvl [1.8-2.5 mg/dL] 2.0 mg/dL (07/30/17 6:25 AM) Phosphorus [2.4-4.7 mg/dL] 4.8 mg/dL 3 *HI* (07/30/17 6:25 AM) Sodium Venous [136-144 mEq/L] 142 mEq/L (07/27/17 7:57 PM) Potassium Venous [3.6-5.1 mEq/L] 3.6 mEq/L 4 (07/27/17 7:57 PM) Calcium Ionized Venous [1.19-1.41 mmol/L] 1.18 mmol/L *LOW* (07/27/17 7:57 PM) Total CO2 Venous [25-29 mEq/L] 26 mEq/L (07/27/17 7:57 PM) HGB Venous NPT [12.0-16.0 gm/dL] 13.9 gm/dL (07/27/17 7:57 PM) HCT Venous [37.0-47.0 %] 41.0 % (07/27/17 7:57 PM) Glucose Venous [70-100 mg/dL] 102 mg/dL *HI* (07/27/17 7:57 PM) BUN Venous [4-20] 16 (07/27/17 7:57 PM) Creatinine Venous [0.4-1.0 mg/dL] 0.8 mg/dL (07/27/17 7:57 PM) Venous CL [99-109 mEq/L] 106 mEq/L (07/27/17 7:57 PM) Anion [place], [place] [3-20 mEq/L] 10 mEq/L (07/27/17 7:57 PM) Blood Glucose, Capillary [70-100 mg/dL] 119 mg/dL *HI* (07/29/17 3:23 PM) Hgb A1c [4.1-5.6 %] 5.7 % *HI* (07/29/17 12:26 PM) eAvg Glucose 116.9 mg/dL (07/29/17 12:26 PM) 1Result Comment: Multiply eGFR results by 1.21 for race.2Result Comment: Naproxen, specifically the metabolite O-desmethylnaproxen, may cause spurious elevation in Total Bilirubin levels.3Result Comment: High dosages of liposomal Amphotericin B (AmBisome) therapy or other drug preparations that use a liposomal envelope to facilitate drug delivery may cause falsely elevated results for phosphorus.4Result Comment: This test was performed on a whole blood specimen. The presence or absence of hemolysis cannot be assessed. Hemolysis can falsely elevate potassium levels. Normals are for venous specimens only.Urinalysis Most recent to oldest [Reference Range]: 1 UA Color Yellow (07/29/17 1:15 PM) UA Appear Clear (07/29/17 1:15 PM) UA pH [5.0-8.0] 6.0 (07/29/17 1:15 PM) UA Leuk Est [Negative] Pos 1+ *ABN* (07/29/17 1:15 PM) UA Nitrite [Negative] Negative (07/29/17 1:15 PM) UA Protein [Negative] Negative (07/29/17 1:15 PM) UA Glucose [Negative] Negative (07/29/17 1:15 PM) UA Ketones [Negative] Negative (07/29/17 1:15 PM) UA Urobilinogen [<1.0] Negative (07/29/17 1:15 PM) UA Bili [Negative] Negative (07/29/17 1:15 PM) UA Blood [Negative] Negative (07/29/17 1:15 PM) UA Spec Grav [1.003-1.030] 1.010 (07/29/17 1:15 PM) Type Clean Catch (07/29/17 1:15 PM) UA WBC [0-4] 5-10 *ABN* (07/29/17 1:15 PM) UA RBC [0-2] 0-2 (07/29/17 1:15 PM) Epithelial Cells 0-2 (07/29/17 1:15 PM) UA Bacteria Rare (07/29/17 1:15 PM) UA Mucous Present (07/29/17 1:15 PM) Procedures Procedure Date Related Diagnosis Body Site Status Colonoscopy1 07/29/17 Completed Procedure with Anesthesia2 07/29/17 Completed 1auto-populated from documented surgical [id number] from documented surgical case Social History Social History Type Response Smoking Status Never (less than 100 in lifetime) entered on: 07/28/17
--- OUTSIDE RECORDS SUMMARY | 2017-11-17 21:08 | External Medical Summary | Continuity of Care Document ---
:1960 Author Organization [facility] Address [address] [place], [place] [id number] Phone Care Team Providers Name Role Phone Leyla Reyes MD Unavailable Unavailable Allergies, Adverse Reactions, Alerts Substance Reaction Severity Status NITROFURANTOIN MACROCRYSTALLINE vomiting Unknown Active codeine Unknown Active Penicillins Unknown Active Medications Medication Instructions Dosage Effective Dates Status Comments (start - stop) flecainide 50 mg take 1 tablet by oral 50 MG - Active tablet route every 12 hours Pradaxa 150 mg capsule take 1 capsule by oral 150 MG - Active route 2 times every day Effer-K 10 mEq - Active effervescent tablet hydralazine 50 mg take 1 tablet by oral 50 MG - Active tablet route 2 times every day with food losartan 100 mg tablet take 1 tablet by oral 100 MG - Active route every day Vitamin D3 2,000 unit - Active capsule Osteo Bi-Flex 250 - Active mg-200 mg tablet labetalol 300 mg take 1 tablet by oral 300 MG - Active tablet route 2 times every day Xanax 1 mg Tab 1 bid - Active Prilosec 20 mg Cap take 1 capsule (20MG) - Active by oral route every day before a meal citalopram 10 mg Tab take 1 tablet (10MG) 10 MG - Active by oral route every day ICaps Tab - Active Problems Condition Effective Dates (start - stop) Clinical Status 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) - (routine) w/o abn findings Encntr for f/u exam aft trtmt for cond - oth tatiana de los sanots Pap Smear Screening, Cervix - Postmenopausal Bleeding Postmenopausal Bleeding - Postmenopausal Bleeding Postmenopausal Bleeding Frequency of micturition Frequency of micturition Procedures Procedure Date Preventive checkup, est,40-64 yrs Specimen handling/transport Results Test Name Date and Time Measure Units Reference Range Abnormal Flag Comments Panel Description: Pap Smear With HPV Reflex If ASCUS Document Pap Smear 15:45:00 See scanned report Advance Directives Directive Yes / No Effective Date File Name Unknown Encounters Encounter Practice Location Reason(s) Diagnoses Date Provider Care Team Description For Visit Members [facility] Steven an 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 700 Provider: [facility],40-64 Health [place], patient well (routine) w/o 8 [facility] PO Box woman exam abn findingsPap [place] Fidel [place], (chief Smear , [address], [facility]) Screening, 120, [place], [place], Cervix Manpreet Harris, , [place], [address]. [place] [id number] tel:+ tel:[phone] , [place]. [id number] tel: [phone] Juan Harris Frequency of Apr-0 Chivo Referring In Womens micturition 2-201 [place]. 700 Provider: Chance Burger [facility] [address], 120, [place], [place], Manpreet Harris, [id number], [place], [address]. [place] [id number] tel: tel:[phone] , [place]. [id number] tel: [phone] Juan Harris Frequency of Jun-2 Chivo Referring In Womens micturition 0-201 [place]. 700 Provider: Chance Burger [facility] Box [place] [address], 120, [place], [place], Manpreet Harris, [id number], [place], [address]. [place] tel: tel: , [place]. [id number] tel: [phone] Associates Steven Encntr for f/u Huber-0 Chivo Referring In Womens exam aft trtmt 5-201 [place]. 700 Provider: Aurelia BUSTILLO, for cond oth 6 [facility] [place] Apple2, magali Wolf, [place] [address] [facility], 120, [place], [place], Manpreet Harris, [id number], [place], [address]. [place] [id number] tel: tel:[phone] , [place]. [id number] tel: [phone] Associates Steven Postmenopausal Dec-2 Chivo Referring In Womens Bleeding 9-201 [place]. 700 Provider: Aurelia BUSTILLO, 5 [facility] Fidel Apple, , [place] [facility], 120, [place], [place], Manpreet Harris, [id number], [place], [address]. [place] [id number] tel: tel: , [place]. [id number] tel: [phone] Associates Steven Postmenopausal Dec-0 Chivo Referring In Womens Bleeding 3-201 [place]. 700 Provider: Aurelia BUSTILLO, 5 [facility] Fidel Apple, , [place] [address] [facility], 120, [place], [place], Manpreet Harris, [id number], [place], [address]. [place] [id number] tel: tel: , [place]. [id number] tel: [phone] Associates Steven Postmenopausal Dec-0 Chivo Referring In Womens Ultrasound Bleeding 3-201 [place]. 700 Provider: Aurelia BUSTILLO, 5 [facility] Fidel Apple, , [place] [address] [facility], 120, [place], [place], Manpreet Harris, [id number], [place], [address]. [place] [id number] tel: tel:[phone] , [place]. [id number] tel: [phone] Associates Steven Postmenopausal Dec-0 Chivo In Womens Bleeding 1-201 [place]. 700 Health [place], 5 Medical [address], , [place], 120, [place], [place], [id number], [place], [place] [id number] tel:+ , [place]. tel: [phone] Juan Harris Mar-2 Chivo Referring In Womens 7-201 [place]. 700 Provider: [facility] [place], 3 Medical [place] [address] Regis [place], [address], , [address] [address] [place], 120, [place], [place], Manpreet Harris, [id number], [place], [address]. [place] [id number] tel:+ tel: , [place]. [id number] tel: [phone] Juan Harris Apr-2 Elder In Womens 3-201 [facility], [address], [address], [place], [place], [address], [id number], [place]. [place] tel: tel: [phone] Associates Steven Mar-3 Elder In Womens 0-201 [facility], [address], [address], [place], [place], [address], [id number], [place]. [place] tel: tel:[phone] Juan Harris Mar-2 Elder In Womens 8-201 [facility], [address], [address], [place], [place], [address], [id number], [place]. [place] tel: tel:[phone] Associates Steven Sep-0 Elder In Womens 1-201 [facility], [address], [address], [place], [place], [address], [id number], [place]. [place] tel: tel:[phone] Associates Steven Lavell-1 Elder In Womens 8-201 [facility], [address], [address], [place], [address], [id number], [place]. [place] tel: tel: [phone] Associates Steven Michele-3 Elder In Womens 0-201 [facility], [address], [address], [facility] [place], [place], [address], [id number], [place]. [place] tel: tel: [phone] Associates Steven Oct-2 Maxwell In Womens 0-200 [place] [place], 8 700 [address], [address] Bharath, [facility], 120, [id number], [place], [facility], tel: [phone] , . tel: [phone] Family History Family Member Diagnosis Age At Onset Maternal Grandmother Diabetes mellitus Maternal Grandmother Cardiovascular Disease Maternal Grandmother Hypertension Immunizations Vaccine Date Status Comments Unknown Payers Payer name Insurance type Covered alliance party ID Authorization(s) [facility] [id number] Social History Type Description Quantity Date Captured Alcohol Use Details Caffeine Use Details Unknown Tobacco Use Status Smoking Status Former smoker Smoking Tobacco Use Cigarette: No Details Available Cigarette: No Details Available Details Vital Signs Date / Height Weight BMI Pulse Blood Temperature Respiratory Body Head BMI Time: Rate Pressure Rate Surface Circumference percentile Area 62.00 270.30 49.4 90 144/81 -2018 in lbs 3 /min mm[Hg] 3:43 kg/m PM eter (2) Chief Complaint And Reason For Visit Most recent encounter only, dated '08/10/2017 15:45'. an established patient well woman exam (chief complaint) Reason For Referral Reason For Referral Unknown Plan Of Care Date Type Action Status Future Order: Radiology Order Transvaginal Pelvic Ultrasound Ordered ([id number]) Date Type Problem Goal Intervention Status Start Date Unknown. History Of Present Illness Encounter Date Complaint History Of Present Illness an established patient well woman exam Functional Status Encounter Date Functional Assessment Cognitive Assessment Unknown Medications Administered Medication Instructions Dosage Effective Dates (start - stop) Status Comments Drug Treatment Unknown Instructions Date Instruction Additional Information Unknown
--- OUTSIDE RECORDS SUMMARY | 2017-11-17 21:08 | External Medical Summary | Continuity of Care Document ---
:1960 Author Organization [facility] Address [address] [place], [place] [phone] Phone Care Team Providers Name Role Phone Leyla Reyes MD Unavailable Unavailable Allergies, Adverse Reactions, Alerts Substance Reaction Severity Status Penicillins Unknown Active NITROFURANTOIN MACROCRYSTALLINE vomiting Unknown Active codeine Unknown Active Medications Medication Instructions Dosage Effective Dates Status Comments (start - stop) Bactrim DS 800 take 1 tablet by Not Available - Active mg-160 mg tablet oral route every 12 hours Aspirin Low Dose 81 take 1 tablet by 81 MG - Active mg tablet,delayed oral route every release day hydralazine 50 mg take 1 tablet by 50 MG - Active tablet oral route 2 times every day with food losartan 100 mg take 1 tablet by 100 MG - Active tablet oral route every day Centrum Silver 0.4 - Active mg-300 mcg-250 mcg tablet Vitamin D3 2,000 - Active unit capsule Osteo Bi-Flex 250 - Active mg-200 mg tablet calcium carbonate - Active 600 mg (1,500)-vitamin D3 200 unit tablet labetalol 300 mg take 1 tablet by 300 MG - Active tablet oral route 2 times every day Xanax 1 mg Tab 1 bid - Active Prilosec 20 mg Cap take 1 capsule - Active (20MG) by oral route every day before a meal citalopram 10 mg take 1 tablet (10MG) 10 MG - Active Tab by oral route every day potassium chloride 3 daily - Active ER 10 mEq Tab ICaps Tab - Active Problems Condition Effective Dates (start - stop) Clinical Status Encntr for f/u exam aft trtmt for cond - oth tatiana de los santos Postmenopausal Bleeding Frequency of micturition Postmenopausal Bleeding - Postmenopausal Bleeding Postmenopausal Bleeding Frequency of micturition Procedures Procedure Date Unknown Results Test Name Date and Time Measure Units Reference Range Abnormal Flag Comments Unknown Advance Directives Directive Yes / No Effective Date File Name Unknown Encounters Encounter Practice Location Reason(s) Diagnoses Date Provider Care Team Description For Visit Members Juan Harris Frequency of Apr-0 Chivo Referring In Womens micturition 2-201 [place]. 700 Provider: Aurelia BUSTILLO 8 [facility] [place] [address], [place], Dr, [address] , [address], [place], [place] Manpreet Harris, tel:[phone] [place], [address]. [id number] tel:+ , [place]. [id number] tel: [phone] Juan Harris Frequency of Mar-2 Chivo Referring In Womens micturition 0-201 [place]. 700 Provider: Aurelia BUSTILLO 8 [facility] [place] [address], [place], Dr, [address] , [address], [place], [place] Manpreet Harris, tel:[phone] [place], [address]. [address] [id number] tel: , [place]. [id number] tel: [phone] Juan Harris Mar-2 Chivo In Womens 0-201 [place]. 700 Aurelia BUSTILLO, 8 Medical [address], [place] [address], [place] , 120, [place] Steven, tel:[phone] [place], [id number] , [place]. tel:[phone] Juan Harris Encntr for f/u Huber-0 Chivo Referring In Womens exam aft trtmt 5-201 [place]. 700 Provider: Aurelia BUSTILLO, for cond oth 6 Rakesh [place] [address], tatiana roca [place], [address] Dr, [address] [id number], 120, [place], [place] Tyree Harrisbody, tel:[phone] [place], [address]. [phone] tel: , [place]. [id number] tel: [phone] Associates Steven Postmenopausal Dec-2 Chivo Referring In Womens Bleeding 9-201 [place]. 700 Provider: Aurelia BUSTILLO, 5 Medical [place] [address], [place], , [address] , [address], [place], [place] Steven Manpreet, tel:[phone] [place], [address]. [phone] tel: , [place]. [id number] tel: [phone] Associates Steven Postmenopausal Dec-0 Chivo Referring In Womens Bleeding 3-201 [place]. 700 Provider: Aurelia BUSTILLO, 5 Medical [place] [address], [place], , [address] , [address], [place], [place] Manpreet Harris, tel:[phone] [place], [address]. [address] [id number] tel: , [place]. [id number] tel: [phone] Associates Steven Postmenopausal Dec-0 Chivo Referring In Womens Ultrasound Bleeding 3-201 [place]. 700 Provider: Aurelia BUSTILLO, 5 Medical [place] [address], [place], , [address] , [address], [place], [place] Manpreet Harris, tel:[phone] [place], [address]. [address] [id number] tel: , US. [id number] tel: [phone] Associates Steven Postmenopausal Dec-0 Chivo In Womens Bleeding 1-201 [place]. 700 Health [place], 5 Medical [address], [place] Sinha, , [place] , 120, [place] Steven, tel:[phone] [place], [phone] , [place]. tel: [phone] Juan Harris Mar-2 Chivo Referring In Womens 7-201 [place]. 700 Provider: Aurelia BUSTILLO, 3 Medical [place] [address], [place], Dr, [address] [id number], 120, [place], [place] Tyree Harrisbody, [place]: [place], [address]. [phone] [id number] tel: , [place]. [id number] tel: [phone] Juan Steven Apr-2 Elder In Womens 3-201 [facility], [address], [place], [place], [place], [place], [id number], [place] [address], [place]: [place]. [phone] tel:[phone] Associates Steven Mar-3 Elder In Womens 0-201 [facility], [address], [place], [place], [place], [id number], [place] [address], [place]: [place]. [phone] tel:[phone] Associates Steven Mar-2 Elder In Womens 8-201 . [facility], [address], [place], [place], [place], [id number], [place] [address], [place]: [place]. [phone] tel:[phone] Associates Steven Mar-1 Elder In Womens 4-201 [facility], [address], [place], [place], [place], [id number], [place] [address], [place]: [place]. [phone] tel:[phone] Associates Steven Sep-0 Elder In Womens 1-201 [facility], [address], [place], [place], [place], [id number], [place] [address], [place]: [place]. [phone] tel:[phone] Associates Steven Lavell-1 Elder In Womens 8-201 [facility], [address], [place], [place], [place], [id number], [place] [address], [place]: [place]. [phone] tel:[phone] Juan Harris Michele-3 Elder In Womens 0-201 [facility], [address], [place], [place], [facility] [id number], [address], tel:[phone] tel: [phone] Juan Harris Oct-2 Maxwell In Womens 0-200 [facility], 8 700 [address], [facility] [id number], , [facility] [place] 120, tel:[phone] Steven, [address] [place], [id number] , [place]. tel: [phone] Family History Family Member Diagnosis Age At Onset Maternal Grandmother Diabetes mellitus Maternal Grandmother Cardiovascular Disease Maternal Grandmother Hypertension Immunizations Vaccine Date Status Comments Unknown Payers Payer name Insurance type Covered libertarian ID Authorization(s) [facility] [id number] Social History Type Description Quantity Date Captured Unknown Vital Signs Date / Height Weight BMI Pulse Blood Temperature Respiratory Body Head BMI Time: Rate Pressure Rate Surface Circumference percentile Area Unknown Chief Complaint And Reason For Visit Unknown Chief Complaint And Reason For Visit Reason For Referral Reason For Referral Unknown Plan Of Care Date Type Action Status Appointment Soren Pina BOOKED Future Order: Radiology Order Transvaginal Pelvic Ultrasound Ordered ([id number]) Date Type Problem Goal Intervention Status Start Date Unknown. History Of Present Illness Encounter Date Complaint History Of Present Illness This patient has no known history of present illness Functional Status Encounter Date Functional Assessment Cognitive Assessment Unknown Medications Administered Medication Instructions Dosage Effective Dates (start - stop) Status Comments Drug Treatment Unknown Instructions Date Instruction Additional Information Unknown
--- OUTSIDE RECORDS SUMMARY | 2017-11-17 21:08 | External Medical Summary | Continuity of Care Document ---
:1960 Author Organization [facility] Address [address] [place], [place] [id number] Phone Care Team Providers Name Role Phone [...] f/u exam aft trtmt for cond - otmiky de los santos Frequency of micturition Postmenopausal Bleeding Postmenopausal Bleeding - Postmenopausal Bleeding Postmenopausal Bleeding Frequency of micturition Procedures Procedure Date Urinalysis, non-automated, w/o scope No Charge Office Visit Cult, bactr, chichi colonycnt, urine Cult, bactr, ident isolate, urine Suscept study, microdilut/agar DANUTA Results Test Name Date and Time Measure Units Reference Range Abnormal Flag Comments Panel Description: Bacteria identified in Urine by Culture Urine Culture, Routine Final report A 10:55:00 Result 1 Escherichia coli A Greater than 100,000 10:55:00 colony forming units per mLCefazolin <=4 ug/mLCefazolin with an DANUTA <=16 predicts susceptibility to the oral agentscefaclor, cefdinir, cefpodoxime, cefprozil, cefuroxime, cephalexin,and loracarbef when used for therapy of uncomplicated urinary tractinfections due to E. coli, Klebsiella pneumoniae, and Proteusmirabilis. Antimicrobial Comment Susceptibility 10:55:00 S=Susceptible; I=Intermediate; R=Resistant P=Positive; N=Negative MICS are expressed in micrograms per mL Antibiotic RSLT#1 RSLT#2 RSLT#3 RSLT#4Amoxicillin/Clav ulanic Acid SAmpicillin RCefepime SCeftriaxone SCefuroxime SCephalothin SCiprofloxacin SErtapenem SGentamicin SImipenem SLevofloxacin SNitrofurantoin SPiperacillin RTetracycline STobramycin STrimethoprim/Sulfa S Advance Directives Directive Yes / No Effective Date File Name Unknown Encounters Encounter Practice Location Reason(s) Diagnoses Date Provider Care Team Description For Visit Members Juan Harris Frequency of Apr-0 Chivo Referring In Womens micturition 2-201 [place]. 700 Provider: [facility], [facility] [address], [place], , [place] [id number], 120, [place], [place] Manpreet Harris, tel:+21 [place], [address]. [phone] tel: , [place]. 4473200 tel: [phone] Juan Harris Frequency of Mar-2 Chivo Referring In Womens micturition 0-201 [place]. 700 Provider: Aurelia BUSTILLO, 8 [facility] [place] [address], [place], , [address] , 120, [place], [place] Manpreet Harris, tel:+21 [place], [address]. [phone] [phone] tel: , [place]. 0914317 tel: [phone] Juan Harris Encntr for f/u Huber-0 Chivo Referring In Womens exam aft trtmt 5-201 [place]. 700 Provider: Aurelia BUSTILLO, for cond oth 6 Medical [place] [address], [facility] [place], magali Wolf, [address] , 120, [place], [place] Manpreet Harris, tel:21 [place], [address]. 9[address] [phone] tel: , [place]. 7803830 tel: [phone] Juan Harris Postmenopausal Dec-2 Chivo Referring In Womens Bleeding 9-201 [place]. 700 Provider: Aurelia BUSTILLO, 5 [facility] [place] [address], [place], , [address] , 120, [place], [place] Manpreet Harris, tel:21 [place], [address]. [phone] [phone] tel: , [place]. 0656751 tel: [phone] Juan Harris Postmenopausal Dec-0 Chivo Referring In Womens Bleeding 3-201 [place]. 700 Provider: Aurelia BUSTILLO, 5 [facility] [place] [address], [place], , [address] , 120, [place], [place] Manpreet Harris, tel:+[phone] [place], [address]. [phone] tel: , [place]. 4308358 tel: [phone] Associates Steven Postmenopausal Dec-0 Chivo Referring In Womens Ultrasound Bleeding 3-201 [place]. 700 Provider: [facility], 5 Medical [place] [address], [place], , [address] [id number], 120, [place], [place] Manpreet Harris, tel:+54206 [place], [address]. [phone] [phone] tel: , [place]. 5433995 tel: [phone] Associates Steven Postmenopausal Dec-0 Chivo In Womens Bleeding 1-201 [place]. 700 [facility], 5 Medical [address], [place], , [place] , 120, [place] Harris, tel:+[phone] [place], [phone] , [place]. tel: [phone] Juan Harris Mar-2 Chivo Referring In Womens 7-201 [place]. 700 Provider: [facility], 3 Medical [place] [address], [facility] [place], , [address] [id number], 120, [place], [place] Steven Manpreet, tel:+21 [place], [address]. 02834 [phone] tel: , [place]. 8956986 tel: [phone] Juan Harris Apr-2 Elder In Womens 3-201 [facility], [address], [place], [place], [place], [id number], [place] [address], tel:+21 [place]. [address] tel: [phone] Associates Steven Mar-3 Elder In Womens 0-201 [facility], [address], [place], [place], [place], [id number], [place] [address], tel:+[phone] [place]. [address] tel: [phone] Associates Steven Mar-2 Elder In Womens 8-201 [facility], [address], [place], [place], [place], [place], [id number], [place] [address], [place]:+ [place]. [address] tel: Juan Harris Mar-1 Elder In Womens 4-201 [facility], [address], [place], [place], [place], [id number], [place] [address], [place]:+ [place]. [address] tel: Juan Harris Sep-0 Elder In Womens 1-201 [facility], [address], [place], [place], [place], [id number], [place] [address], [place]:+ [place]. [address] tel:[phone] Juan Harris Lavell-1 Elder In Womens 8-201 [facility], [address], [place], [place], [place], [place], [id number], [place] [address], tel:+ [place]. [address] tel:[phone] Juan Harris Michele-3 Elder In Womens 0-201 [facility], [address], [place], [place], [place], [place], [id number], [place] [address], tel:+21 [place]. [address] tel:[phone] Juan Harris Oct-2 Maxwell In Womens 0-200 [facility], 8 700 [address], [place], [place], [place] [id number] [place] 120, tel:+ Steven [address] [place], [id number] , [place]. tel: [phone] Family History Family Member Diagnosis Age At Onset Maternal Grandmother Diabetes mellitus Maternal Grandmother Cardiovascular Disease Maternal Grandmother Hypertension Immunizations Vaccine Date Status Comments Unknown Payers Payer name Insurance type Covered libertarian ID Authorization(s) TALI ROJAS [id number] Social History Type Description Quantity Date Captured Alcohol Use Details Unknown Caffeine Use Details Unknown Tobacco Use Status Smoking Status Former smoker Vital Signs Date / Height Weight BMI Pulse Blood Temperature Respiratory Body Head BMI Time: Rate Pressure Rate Surface Circumference percentile Area Unknown Chief Complaint And Reason For Visit Unknown Chief Complaint And Reason For Visit Reason For Referral Reason For Referral Unknown Plan Of Care Date Type Action Status Appointment Soren Pina BOOKED Future Order: Radiology Order Transvaginal Pelvic Ultrasound Ordered ([id number]) Date Type Problem Goal Intervention Status Start [...]
--- OUTSIDE RECORDS SUMMARY | 2017-11-17 21:08 | External Medical Summary | Continuity of Care Document ---
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 Encntr for f/u exam aft trtmt for cond - oth tatiana de los santos Frequency of micturition Postmenopausal Bleeding Pap Smear Screening, Cervix - Postmenopausal Bleeding - Postmenopausal Bleeding Postmenopausal Bleeding Frequency of micturition Procedures Procedure Date Urinalysis, non-automated, w/o scope Cult, bactr, chichi colonycnt, urine Results Test Name Date and Time Measure Units Reference Range Abnormal Flag Comments Panel Description: Bacteria identified in Urine by Culture Urine Culture, Routine 16:10:00 Final report Result 1 16:10:00 No growth Advance Directives Directive Yes / No Effective Date File Name Unknown Encounters Encounter Practice Location Reason(s) Diagnoses Date Provider Care Team Description For Visit Members Juan Harris 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 700 Provider: [facility], (routine) w/o [address] [place] [address] [address] [address], [facility] findingsPap [place], [place]ear , [address] [id number], Scre[place], 120, [place], [place] Cervix Manpreet Harris, tel:+[phone] [place], [address]. [address] [phone] tel: , [place]. 4198688 tel: [phone] Juan Harris Frequency of Apr-0 Chivo Referring In Womens micturition 2-201 [place]. 700 Provider: [facility] PR[facility]ance [facility] [place] [address], [place], Dr, [place] [address] [id number], 120, [place], [place] Manpreet Harris, tel:+[phone] [place], [address] 129[address] [phone] tel: , [place]. 9321333 tel: [phone] Juan Harris Frequency of Mar-2 Chivo Referring In Womens micturition 0-201 [place]. 700 Provider: [facility] PRChance [facility] [place] [address], [place], Dr, [address] [id number], 120, [place], [place] Manpreet Harris, tel:+21 [place], [address]. [address] [phone] tel: , [place]. 1764725 tel: [phone] Associates Steven Encntr for f/u Huber-0 Chivo Referring In Womens exam aft trtmt 5- [place]. 700 Provider: Aurelia BUSTILLO, for cond oth 6 [facility] [address], [facility] [place], magali Wolf, [address] , 120, [place], [place] Manpreet Harris, tel:+[phone] [place], [address]. [address] [phone] tel: , [place]. 1643768 tel: [phone] Juan Harris Postmenopausal Dec-2 Chivo Referring In Womens Bleeding 9- [place]. 700 Provider: Aurelia BUSTILLO, 5 [facility] [address], [place], , [address] , 120, [place], [place] Manpreet Harris, tel:+21 [place], [address]. [address]94[address] [phone] tel: , [place]. 3269705 tel: [phone] Juan Harris Postmenopausal Dec-0 Chivo Referring In Womens Bleeding 3-201 [place]. 700 Provider: Aurelia BUSTILLO, 5 [facility] [address], [place], , [address] [id number], 120, [place], [place] Manpreet Harris, tel:21 [place], [address]. [address] [phone] tel: , US. 4560005 tel: [phone] Juan Harris Postmenopausal Dec-0 Chivo Referring In Womens Ultrasound Bleeding 3-201 [place]. 700 Provider: Aurelia BUSTILLO, 5 [facility] [address], [place], , [address] [id number], 120, [place], [place] Manpreet Harris, tel:+21 [place], [address]. [address] [phone] tel: , US. 4186464 tel: [phone] Juan Harris Postmenopausal Dec-0 Chivo In Womens Bleeding 1-201 [place]. 700 Health [facility], 5 Medical [address], [place], , [place] [id number], 120, [place] Harris, tel:+21 [place], [phone] , [place]. tel: [phone] Juan Harris Mar-2 Chivo Referring In Womens 7-201 [place]. 700 Provider: [facility], 3 Medical [place] [address], [facility] [place], , [address] [id number], 120, [place], [place] StevenManpreet, tel:+21 [place], [address]. [address] [phone] tel:+ , [place]. 9992529 tel: [phone] Juan Harris Apr-2 Elder In Womens 3-201 [facility], [address], [place], [place], [place], , [place] [address], tel:+21 [place]. [address] tel: [phone] Associates Steven Mar-3 Elder In Womens 0-201 [facility], [address], [place], [place], [place], [id number], [place] [address], tel:+[phone] [place]. [address] tel: [phone] Juan Harris Mar-2 Elder In Womens 8-201 [facility], [address], [place], [place], [place], [id number], [place] [address], tel:+17972 [place]. [address] tel: [phone] Associates Steven Sep-0 Elder In Womens 1-201 [facility], [address], [place], [place], [place], [place], [id number], [place] [address], tel:+32530 [place]. [address] tel: [phone] Associates Steven Lavell-1 Elder In Womens 8-201 [facility], [address], [place], [place], [place], [place], [id number], [place] [address], [place]: [place]. [address] tel: [phone] Associates Steven Michele-3 Elder In Womens 0-201 [facility], [address], [place], [place], [place], [place], [id number], [place] [address], [place]: [place]. [address] tel: [phone] Juan Harris Oct-2 Maxwell In Womens 0-200 [facility], 8 700 [address], [place], [place], [place] [id number], , [facility] [place] 120, tel: Steven, [address] [place], [id number] , [place]. tel: [phone] Family History Family Member Diagnosis Age At Onset Maternal Grandmother Diabetes mellitus Maternal Grandmother Cardiovascular Disease Maternal Grandmother Hypertension Immunizations Vaccine Date Status Comments Unknown Payers Payer name Insurance type Covered democrat ID Authorization(s) [facility] [id number] Social History Type Description Quantity Date Captured Unknown Vital Signs Date / Height Weight BMI Pulse Blood Temperature Respiratory Body Head BMI Time: Rate Pressure Rate Surface Circumference percentile Area Unknown Chief Complaint And Reason For Visit Unknown Chief Complaint And Reason For Visit Reason For Referral Reason For Referral Unknown Plan Of Care Date Type Action Status Future Order: Lab Order Pap Smear With HPV Reflex If ASCUS Ordered ([id number]), Collected on: Future Order: Radiology Order Transvaginal Pelvic Ultrasound Ordered ([id number]) Date Type Problem Goal Intervention Status Start [...]
--- OUTSIDE RECORDS SUMMARY | 2017-11-17 21:08 | External Medical Summary | Continuity of Care Document ---
:1960 Author Organization [facility] Address [address] [place], [place] [phone] Phone Care Team Providers Name Role Phone [...] Apr-0 Chivo Referring In Womens micturition 2-201 [place]. 700 Provider: [facility] [place] [address], [place], Dr, [address] [id number], 120, [place], [place] Manpreet Harris, tel:+48085 [place], [address]. [address] [phone] tel:+ , [place]. 8138864 tel: [phone] Juan Harris Mar-2 Chivo In Womens 2-201 [place]. 700 Aurelia BUSTILLO 8 Medical [address], [place] [address], [place] , 120, [place] Harris, tel:+[phone] [place], [phone] , [place]. tel:[phone] Juan Harris Frequency of Mar-2 Chivo Referring In Womens micturition 0-201 [place]. 700 Provider: Chance Burger [facility] [place] [address], [place], Dr, [address] [id number], 120, [place], [place] Manpreet Harris, tel:+60406 [place], [address]. [address] [phone] tel:+ , [place]. 2152784 tel: [phone] Juan Harris Encntr for f/u Huber-0 Chivo Referring In Womens exam aft trtmt 5-201 [place]. 700 Provider: Aurelia BUSTILLO, for cond oth 6 Medical [place] [address], [facility] [place], [address] Dr, [address] [id number], 120, [place], [place] Tyree Harrisbody, tel:+21 [place], [address]. [address] [phone] tel: , [place]. 1713978 tel: [phone] Associates Steven Postmenopausal Dec-2 Chivo Referring In Womens Bleeding 9-201 [place]. 700 Provider: Aurelia BUSTILLO, 5 Medical [place] [address], [place], , [address] , 120, [place], [place] Steven Manpreet, tel:+78601 [place], [address]. [address] [phone] tel: , US. 9074280 tel: [phone] Associates Steven Postmenopausal Dec-0 Chivo Referring In Womens Bleeding 3-201 [place]. 700 Provider: Aurelia BUSTILLO, 5 Medical [place] [address], [place], , [address] , 120, [place], [place] Manpreet Harris, tel:+39887 [place], [address]. [address] [phone] tel: , US. 4200739 tel: [phone] Associates Steven Postmenopausal Dec-0 Chivo Referring In Womens Ultrasound Bleeding 3-201 [place]. 700 Provider: Aurelia BUSTILLO, 5 Medical [place] [address], [place], , [address] , 120, [place], [place] Manpreet Harris, tel:+21 [place], [address]. [address] [phone] tel: , US. 7836638 tel: [phone] Associates Steven Postmenopausal Dec-0 Chivo In Womens Bleeding 1-201 [place]. 700 Health [facility], 5 Medical [address], [place], , [place] , 120, [place] Steven, tel:+59213 [place], [phone] , [place]. tel: [phone] Juan Harris Mar-2 Chivo Referring In Womens 7-201 [place]. 700 Provider: Aurelia BUSTILLO, 3 Medical [place] [address], [place], Dr, [address] [id number], 120, [place], [place] Tyree [place]body, [place]: [place], [address]. [address] [phone] tel: , [place]. 7411243 tel: [phone] Juan Steven Apr-2 Elder In Womens 3-201 [facility], [address], [place], [place], [place], [place], [id number], [place] [address], [place]: [place] [address] tel:[phone] Associates Steven Mar-3 Elder In Womens 0-201 [facility], [address], [place], [place], [place], [place], [id number], [place] [address], [place] [address] tel:[phone] Associates Steven Mar-2 Elder In Womens 8-201 . [facility], [address], [place], [place], [place], [place], [id number], [place] [address], [place]: [place]. [address] tel:[phone] Associates Steven Mar-1 Elder In Womens 4-201 [facility], [address], [place], [place], [place], [place], [id number], [place] [address], [place]: [place]. [address] tel:[phone] Associates Steven Sep-0 Elder In Womens 1-201 [facility], [address], [place], [place], [place], [place], [id number], [place] [address], [place]: [place]. [address] tel:[phone] Associates Steven Lavell-1 Elder In Womens 8-201 [facility], [address], [place], [place], [place], [place], [id number], [place] [address], [place]: [place]. [address] tel:[phone] Juan Harris Michele-3 Elder In Womens 0-201 [facility], [address], [place], [place], [facility] [id number], [address], tel:21 . [address] tel: [phone] Juan Harris Oct-2 Maxwell In Womens 0-200 [facility], 8 700 [address], [facility] [id number], , [facility] [place] 120, tel:26212 [place], [address] [place], [id number] , [place]. tel: [phone] Family History Family Member Diagnosis Age At Onset Maternal Grandmother Diabetes mellitus Maternal Grandmother Cardiovascular Disease Maternal Grandmother Hypertension Immunizations Vaccine Date Status Comments Unknown Payers Payer name Insurance type Covered alliance party ID Authorization(s) [facility] [id number] Social History Type Description Quantity Date Captured [...] Order: Radiology Order Transvaginal Pelvic Ultrasound Ordered ([id number]) Date Type Problem Goal Intervention Status Start [...]
--- OUTSIDE RECORDS SUMMARY | 2017-11-17 21:08 | External Medical Summary | Continuity of Care Document ---
:1960 Author Organization [facility] Address [address] [place], [place] [phone] Phone Care Team Providers Name Role Phone [...] aft trtmt for cond - oth tatiana brannonshayna de los santos Frequency of micturition Postmenopausal Bleeding Postmenopausal Bleeding - Postmenopausal Bleeding Postmenopausal Bleeding Procedures Procedure Date Urinalysis, non-automated, w/o scope No Charge Office Visit Results Test Name Date and Time Measure Units Reference Range Abnormal Flag Comments Unknown Advance Directives Directive Yes / No Effective Date File Name Unknown Encounters Encounter Practice Location Reason(s) Diagnoses Date Provider Care Team Description For Visit Members Juan Harris Frequency of Jun- Chivo Referring In Womens micturition 0-201 [place]. 700 Provider: Aurelia BUSTILLO, 8 [facility], [place], , [address] [id number], 120, [place], [place] Manpreet Harris, tel:+[address]101 [place], [address]. [address] [phone] tel: , [place]. 2875312 tel: [phone] Juan Harris Encntr for f/u Apr- Chivo Referring In Womens exam aft trtmt 5-201 [place]. 700 Provider: Aurelia BUSTILLO, for cond oth 6 [facility] [place] [address], [facility] [place], magali Wolf, [address] [id number], 120, [place], [place] Manpreet Harris, tel:+63782 [place], [address]. [address] [phone] tel: , . 6417605 tel: [phone] Juan Harris Postmenopausal Dec-2 Chivo Referring In Womens Bleeding 9-201 [place]. 700 Provider: Aurelia BUSTILLO, 5 [facility] [place] [address], [place], , [address] [id number], 120, [place], [place] Manpreet Harris, tel:+29599 [place], [address]. [address] [phone] tel: , . 2163099 tel: [phone] Juan Harris Postmenopausal Dec-0 Chivo Referring In Womens Bleeding 3-201 [place]. 700 Provider: Health [facility], 5 Medical [place] [address], [place], , [address] [id number], 120, [place], [place] Manpreet Harris, tel:+61090 [place], [address]. [address] [phone] tel: , [place]. 8460201 tel: [phone] Juan Harris Postmenopausal Dec-0 Chivo Referring In Womens Ultrasound Bleeding 3-201 [place]. 700 Provider: [facility], 5 Medical [place] [address], [place], , [address] [id number], 120, [place], [place] Manpreet Harris, tel:+46566 [place], [address]. [address] [phone] tel: , [place]. 0744894 tel: [phone] Juna Harris Postmenopausal Dec-0 Chivo In Womens Bleeding 1-201 [place]. 700 Health [facility], 5 Medical [address], [place], , [place] [id number], 120, [place] Harris, tel:+[address] [place], [phone] , [place]. tel: [phone] Juan Harris Mar-2 Chivo Referring In Womens 7-201 [place]. 700 Provider: Health [facility], 3 Medical [place] [address], [place], , [address] [id number], 120, [place], [place] Manpreet Harris, tel:+76269 [place], [address]. [address] [phone] tel: , US. 0052363 tel: [phone] Juan Harris Apr-2 Elder In Womens 3-201 [facility], [address], [place], [place], [id number], [place] [address], tel:+65367 [place]. [address] tel: [phone] Juan Harris Mar-3 Elder In Womens 0-201 [facility], [address], [place], [place], [place], [id number], [place] [address], tel:+21 [place]. [address] tel: Associates Steven Mar-2 Elder In Womens 8-201 [facility], [address], [place], [place], [place], [place], [id number], [place] [address], tel:+21 [place]. [address] tel: Associates Steven Mar-1 Elder In Womens 4-201 [facility], [address], [place], [place], [place], [place], [id number], [place] [address], tel:+21 [place]. [address] tel: Associates Steven Sep-0 Elder In Womens 1-201 [facility], [address], [place], [place], [place], [place], [id number], [place] [address], tel:+21 [place]. [address] tel: Associates Steven Lavell-1 Elder In Womens 8-201 [facility], [address], [place], [place], [place], [place], [id number], [place] [address], tel:+21 [place]. [address] tel: Associates Steven Michele-3 Elder In Womens 0-201 [facility], [address], [place], [place], [place], [place], [id number], [place] [address], tel:+21 [place]. [address] tel: Juan Harris Oct-2 Maxwell In Womens 0-200 [facility], 8 700 [address], [facility], [place], [place] [id number], [place] 120, tel:+ Steven [address] [place], [id number] , [place]. tel: [phone] Family History Family Member Diagnosis Age At Onset Maternal Grandmother Diabetes mellitus Maternal Grandmother Cardiovascular Disease Maternal Grandmother Hypertension Immunizations Vaccine Date Status Comments Unknown Payers Payer name Insurance type Covered constitution party ID Authorization(s) TALI ELMA ROJAS [id number] Social History Type Description Quantity Date Captured [...] Order: Radiology Order Transvaginal Pelvic Ultrasound Ordered ([id number]) Date Type Problem Goal Intervention Status Start [...]
--- OUTSIDE RECORDS SUMMARY | 2017-11-17 21:08 | External Medical Summary | Continuity of Care Document ---
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 700 Provider: elke,40-64 Health PA, patient well (routine) w/o [address] [place] [address] Box woman exam abn findingsPap [place] Regis Carrington, [place], (chief Smear , [address], [facility]) Screening, 120, [place], [place], Cervix Manpreet Harris, [id number], [place], [address]. [place] [id number] tel:+ tel:[phone] , [place]. [id number] tel: [phone] Juan Harris Frequency of Apr-0 Chivo Referring In Womens micturition 2-201 [address] 700 Provider: Chance Burger [facility] [place], , [facility] [address] [facility], 120, [place], [place], Manpreet Harris, [id number], [place], [address]. [place] [id number] tel: tel:[phone] , [place]. [id number] tel: [phone] Juan Harris Frequency of Jun-2 Chivo Referring In Womens micturition 0-201 Kulm. 700 Provider: Chance Burger [facility], , [facility] [address] [facility], 120, [place], [place], Manpreet Harris, [id number], [place], [address]. [place] [id number] tel: tel:[phone] , [place]. [id number] tel: [phone] Associates Steven Encntr for f/u Huber-0 Chivo Referring In Womens exam aft trtmt 5-201 K[address]. 700 Provider: Aurelia BUSTILLO, for cond oth 6 [facility] Regis Carrington, [place], magali Wolf, Bin[place] [address] [place] [address], 120, [place], [place], Manpreet Harris, [id number], [place], [address]. [place] [id number] tel: tel:[phone] , [place]. [id number] tel: [phone] Associates Steven Postmenopausal Dec-2 Chivo Referring In Womens Bleeding 9-201 Kulm[address] 700 Provider: Aurelia BUSTILLO, 5 [facility] Fidel Apple, , Binu [address] [place] [address], 120, [place], [place], Manpreet Harris, [id number], [place], [address]. [place] [id number] tel: tel:[phone] , [place]. [id number] tel: [phone] Associates Steven Postmenopausal Dec-0 Chivo Referring In Womens Bleeding 3-201 Kulm. 700 Provider: Aurelia BUSTILLO, 5 [facility] Fidel Apple, , [address], 120, [place], [place], Manpreet Harris, [id number], [place], [address]. [place] [id number] tel: tel:[phone] , [place]. [id number] tel: [phone] Associates Steven Postmenopausal Dec-0 Chivo Referring In Womens Ultrasound Bleeding 3-201 K[address]m. 700 Provider: Aurelia BUSTILLO, 5 [facility] Fidel Apple, , Bin[place] [address] [place] [address], 120, [place], [place], Manpreet Harris, [id number], [place], [address]. [place] [id number] tel: tel:[phone] , [place]. [id number] tel: [phone] Associates Steven Postmenopausal Dec-0 Chivo In Womens Bleeding 1-201 [address] 700 Aurelia BUSTILLO, 5 [facility] Fidel, , [place], 120, [place], [place], [id number], [place], [place] [id number] tel: , [place]. tel: [phone] Juan Harris Mar-2 Chivo Referring In Womens 7-201 Malvin. 700 Provider: Health PA, 3 [facility] [address] [place] Regis Carrington, 15[address], , [place] [address] [place], [address], [place], [place], [place], Manpreet, [id number], [place], [address]. [place] [id number] tel: tel:+ , [place]. [id number] tel: [phone] Associates Steven Apr-2 Elder In Womens 3-201 [facility], [address], [place], [place], [address], [id number], [place]. [place] tel: tel: [phone] Associates Steven Mar-3 Elder In Womens 0-201 [facility] [place], [address], [place], [place], [address], [id number], [place]. [place] tel: tel: [phone] Associates Steven Mar-2 Elder In Womens 8-201 [facility] [place], [address], [place], [place], [address], [id number], [place]. [place] tel: tel: [phone] Associates Steven Sep-0 Elder In Womens 1-201 [facility] [place], [address], [place], [place], [address], [id number], [place]. [place] tel: tel: [phone] Associates Steven Lavell-1 Elder In Womens 8-201 [facility] [place], [address], [place], [place], [address], [id number], [place]. [place] tel: tel: [phone] Associates Steven Michele-3 Elder In Womens 0-201 [facility] [place], [address], [place], [address], [id number], [place]. [place] tel: tel: [phone] Associates Steven Oct-2 Maxwell In Womens 0-200 [facility] [place], 8 [address], [place] [address] Bharath, [facility] [place], 120, [id number], [place], [facility], tel: [phone] , [place]. tel: [phone] Family History Family Member Diagnosis Age At Onset Maternal Grandmother Diabetes mellitus Maternal Grandmother Cardiovascular Disease Maternal Grandmother Hypertension Immunizations Vaccine Date Status Comments Unknown Payers Payer name Insurance type Covered green party ID Authorization(s) [facility] [id number] Social History Type Description Quantity Date Captured Alcohol Use Details Caffeine Use Details Unknown Tobacco Use Status Smoking Status Former smoker Smoking Tobacco Use Cigarette: No Details Available Cigarette: No Details Available Details Vital Signs Date / Height Weight BMI Pulse Blood Temperature Respiratory Body Head BMI Time: Rate Pressure Rate Surface Circumference percentile Area 62.00 270.30 49.4 90 144/2018 in lbs 3 /min mm[Hg] 3:43 kg/m [...] Order: Radiology Order Transvaginal Pelvic Ultrasound Ordered (02691) Date Type Problem Goal Intervention Status Start Date Unknown. History Of Present Illness Encounter Date Complaint History Of Present Illness an established patient well woman exam Functional Status Encounter Date Functional Assessment Cognitive Assessment Unknown Medications Administered Medication Instructions Dosage Effective Dates (start - stop) Status Comments Drug Treatment Unknown Instructions Date Instruction Additional Information Unknown
[2017-11-17] MEDS ORDERED: FLECAINIDE 50 MG TABLET PO ONE (21:09)
[2017-11-17] MEDS ORDERED: FentaNYL 100 MCG/2 ML INJECTION IVP ONE (21:33)
[2017-11-17] MEDS ORDERED: SALINE FLUSH 10ml SYRINGE IV ONE (21:33)
[2017-11-17] MEDS ORDERED: MIDAZOLAM 2mg/2ml INJECTION IVP ONE (21:33)
[2017-11-17 22:26] VITALS: BMI 50.0
[2017-11-18] MEDS: GLUCOSAMINE/CHONDROITIN 500 MG/400 MG CAPSULE PO SCH ×2 (08:57→20:48)
[2017-11-18] MEDS: MULTI-VIT + MINERAL (Opti-gen) TABLET PO SCH ×2 (08:58→20:48)
[2017-11-18] MEDS: HYDRALAZINE 25 MG TABLET PO SCH ×4 (08:58→20:45)
[2017-11-18] MEDS: LABETALOL 100 MG TABLET PO SCH ×2 (08:59→20:46)
[2017-11-18] MEDS ORDERED: [UNRECOGNIZED DRUG - OTHER] PO SCH (09:00)
[2017-11-18] MEDS ORDERED: NON-FORMULARY MEDICATION 1 EACH EACH (Multivit-Min/Fa/Lycopen/Lutein [Centrum Silver Table PO SCH (09:00)
[2017-11-18] MEDS ORDERED: GLUCOSAMINE HCL PO SCH (09:00)
[2017-11-18] MEDS ORDERED: FLECAINIDE 50 MG TABLET PO SCH (09:00)
[2017-11-18] MEDS: MULTI-VITAMIN + MINERAL TABLET PO SCH (09:00)
[2017-11-18] MEDS ORDERED: NON-FORMULARY MEDICATION 1 EACH EACH (Labetalol Hcl [Labetalol Hcl] 300 MG) PO SCH (09:00)
[2017-11-18] MEDS ORDERED: NON-FORMULARY MEDICATION 1 EACH EACH (Vit A/Vit C/Vit E/Zinc/Copper [Preservision Areds Ta PO SCH (09:00)
[2017-11-18] MEDS ORDERED: NON-FORMULARY MEDICATION 1 EACH EACH (Cholecalciferol (Vitamin D3) [Vitamin D3] 1,000 UNIT PO SCH (09:00)
[2017-11-18] MEDS ORDERED: CHONDR SU A NA PO SCH (09:00)
--- NOTE | 2017-11-18 11:08 | Cardiology History & Physical ---
History of Present Illness Chief complaint: fatigue, SOA, HPI: Soren Modi is a a 57 year old female who is well known to Dr. Ruiz's practice with a history of PAF, PVCs, pulmonary HTN, MARIBEL, HTN and obesity who reportedly had been in and out of A. fib all day yesterday, and had persistent A. fib for several hours before presenting to the ED. She had a similar episode with her first A. fib/RVR back in April of this year, she is on Flecainide 50mg BID for antiarrhythmic therapy. She had a few similar episodes last month, and discussed with Dr. Ruiz about increasing her Flecainide, but since the episodes were self-limited and widely dispersed they decided not to increase her medicine at that time. She reported some sweating at home, but no dizziness , lightheadedness, chest pain or pressure, or abdominal complaints. echo 04/2017: EF 75%, biatrial dilation, LVH, mild to mod MT, mild TR, PHTN PAP 60mmHg. Echo 09/2017: EF 55-60%, LVH, NWMA, trace MR, mild TR, RVSP 22.44mmHg Review of Systems - Constitutional Constitutional: Present: fatigue (some the last 2 weeks), weight loss ( intentional). Absent: chills, fever(s) - EENMT Eyes: Absent: change in vision Balance: Absent: vertigo Mouth/Throat: Absent: sore throat - Cardiovascular Cardiovascular: Present: palpitations (began yesterday), dyspnea on exertion ( occasionally). Absent: chest pain, syncope, orthopnea, edema Vascular: Absent: pedal edema - Respiratory Respiratory: Absent: cough, wheezing - Gastrointestinal Gastrointestinal: Absent: abdominal pain, constipation, diarrhea, nausea, vomiting - Genitourinary Genitourinary: Absent: dysuria - Integumentary/Breasts Integumentary: Absent: rash - Neurological Neurological: Present: dizziness PFSH Patient Stated Medical History Dental Problems wears braces Macular Degeneration Yes Other HEENT Yes: wears glasses Hypertension Yes Other Cardiology Yes: low potassium Sleep Apnea Yes Other Respiratory Yes: pulmonary htn Gastrointestinal Bleeding Yes Hepatitis Yes: hx Hx Urinary Tract Infection Yes Osteoarthritis Yes Other Infectious Yes: hepatitis Anesthesia Reactions Yes: Enapsine-a mental reation- Committed after med Depression Yes Post Menopausal Yes Now No Clinic Medical History (Last Reviewed 09/01/17 @ 14:40 by Zafar Monet MD) Posterior tibial tendonitis of right leg (Chronic Medical) Arthritis of both knees (Chronic Medical) Anxiety (Acute Medical) Depression (Acute Medical) Hypertension (Acute Medical) Inflammatory bowel disease (Acute Medical) Macular degeneration (Acute Medical) Obstructive sleep apnea (Acute Medical) Secondary pulmonary hypertension (Acute Medical) Surgical History: C section X3. bladder surgery. Cholecystectomy Family History: Family History (Last Reviewed 09/01/17 @ 14:40 by Zafar Monet MD) Mother Melanoma Brother Melanoma Maternal Grandmother Diabetes Paternal Grandmother Pancreatic cancer - Social History Smoking status: Former smoker Quit date: 04/26/85 Substance use type: does not use Alcohol intake frequency: former alcohol drinker Household members: none Current occupational status: employed Current residence: Apartment/Private Home Medications Home Medications Medication Instructions Recorded Confirmed Type Labetalol HCl 300 mg PO BID #0 08/07/13 11/17/17 History Glucosamine HCl/Chondr Graff A Na 1 tab PO BID #0 04/08/15 11/17/17 History [Osteo Bi-Flex Caplet] ALPRAZolam [Xanax] 1 mg PO HS 04/18/17 11/17/17 History Citalopram [Celexa] 10 mg PO HS 04/18/17 11/17/17 History Losartan [Cozaar] 100 mg PO HS 04/18/17 11/17/17 History Multivit-Min/FA/Lycopen/Lutein 1 tab PO DAILY 04/18/17 11/17/17 History [Centrum Silver Tablet] Dabigatran [Pradaxa] 150 mg PO BID #60 cap 05/07/17 11/17/17 Rx Flecainide [Tambocor] 50 mg PO BID #60 tab 05/07/17 11/17/17 Rx Potassium Chloride [MICRO-K 10 mEq 10 meq PO TIDWM #90 cap 05/07/17 11/17/17 Rx Capsule] Hydralazine [Apresoline] 25 mg PO TID 05/17/17 11/17/17 History Cholecalciferol (Vitamin D3) 1,000 unit PO DAILY 11/17/17 11/17/17 History [Vitamin D3] Vit A/Vit C/Vit E/Zinc/Copper 1 tab PO BID 11/17/17 11/17/17 History [Preservision Areds Tablet] Allergies Allergy/AdvReac Type Severity Reaction Status Date / Time nitrofurantoin Allergy Mild RASH Verified 11/17/17 20:20 Penicillins Allergy Mild Nausea and Verified 11/17/17 22:30 Vomiting droperidol AdvReac Severe Severe Verified 11/17/17 20:20 Chemical Imbalance and Mental Problems codeine AdvReac Mild NAUSEA Verified 11/17/17 20:20 Exam Vital signs: Temperature 97.1 F 11/18/17 07:48 Pulse Rate 98 11/18/17 08:00 Respiratory Rate 12 11/18/17 07:48 Blood Pressure 142/82 H 11/18/17 10:37 Pulse Oximetry 96 11/18/17 07:48 - Constitutional no acute distress, morbidly obese, cooperative - Routine HEENT Exam Head: Present: normocephalic ENT: Present: mucous membranes dry - Routine Neck Exam Absent: JVD, carotid bruit - Routine Chest/Breast/Axilla Exam Chest wall: Absent: tenderness, pacemaker - Routine Respiratory Exam Present: CTA bilaterally, diminished air movement. Absent: dyspnea, rales, wheezes - Routine Cardiovascular Exam Present: RRR, no murmur - Routine Abdominal Exam Present: soft, non tender - Routine Extremities Exam Present: no edema, pulses intact - Routine Skin Exam Present: intact, dry, warm - Routine Neurological Exam Present: alert, oriented X3 - Routine Psychiatric Exam Present: normal affect, normal thought process Results 11/17/17 20:28 11/17/17 20:28 Cardiac Enzymes 11/17/17 Range/Units 20:28 AST 22 (14-36) U/L Troponin I < 0.012 (0-0.12) ng/ml CBC 11/17/17 Range/Units 20:28 WBC 8.5 (4.5-11.0) T/MM3 RBC 4.58 (4.00-5.20) M/MM3 Hgb 13.7 (12-16) GM/DL Hct 41.5 (36-46) % Plt Count 312 (130-400) T/MM3 Neut # (Auto) 5.8 (1.8-7.7) T/MM3 Lymph # (Auto) 1.9 (1-4.8) T/MM3 Cooke # (Auto) 0.6 (0-0.8) T/MM3 Eos # (Auto) 0.1 (0-0.5) T/MM3 Baso # (Auto) 0.0 (0-0.2) T/MM3 Comprehensive Metabolic Panel 11/17/17 Range/Units 20:28 Sodium 145 (136-146) MEQ/L Potassium 4.1 (3.6-5) MEQ/L Chloride 108 H (98-107) MEQ/L Carbon Dioxide 24 (22-30) MEQ/L BUN 12.0 (7-17) MG/DL Creatinine 0.8 (0.7-1.2) mg/dL Glucose 111 H (65-110) MG/DL Calcium 9.7 (8.4-10.2) MG/DL Unconjugated Bilirubin 0.50 (0.00-1.1) mg/dL AST 22 (14-36) U/L ALT 23 (1-35) U/L Alkaline Phosphatase 116 (38-126) U/L Total Protein 7.8 (6.3-8.2) g/dL Albumin 4.8 (3.5-5.0) g/dL Intake and Output 11/17/17 11/18/17 11/18/17 22:59 06:59 14:59 Intake Total 1200 / 1200 Balance 1200 / 1200 Intake: IV 1000 / 1000 Ns 1,000 ml @ 999.9 mls/hr IV . 1000 / 1000 Q1H ONE Rx#:[id number] Oral 200 / 200 Other: # Voids 1 1 Weight 273 lb 5.971 oz 268 lb 15.423 oz Patient Weight 11/19/17 06:59 Weight 268 lb 15.423 oz EKG interpretations - EKG EKG shows: atrial fibrillation Hospital Course This is a general summary of the patient's hospital course. For more details refer to the complete medical record. Time spent with patient: 25 - 35 minutes Resuscitation Status: Full Code Assessment and Plan - Assessment and Plan (1) Atrial fibrillation with RVR Current visit: Yes Status: Acute History of PAF on Flecainide for AAT - Given Cardizem 25mg and 15mg IV in the ED - Given additional 50mg Flecainide - Currently rate controlled but remains in a fib - take Pradaxa for stroke prevention - DCCV this afternoon - increase Flecainide to 100mg BID - EKG in am - Monitor telemetry overnight (2) Ventricular premature depolarization Current visit: No Status: Chronic Continue current therapy with routine monitoring (3) Pulmonary hypertension Current visit: No Status: Chronic Wear C PAP as directed - echo 04/2017: EF 75%, biatrial dilation, LVH, mild to mod MT, mild TR, PHTN PAP 60mmHg. - Echo 09/2017: EF 55-60%, LVH, NWMA, trace MR, mild TR, RVSP 22.44mmHg - Continue current therapy with routine monitoring (4) Essential (primary) hypertension Current visit: No Status: Chronic Condition is stable - Continue current therapy with routine monitoring (5) Sleep apnea Current visit: No Status: Chronic PCP manages (6) Obesity, morbid, BMI 40.0-49.9 Current visit: Yes Status: Acute has decreased weight by close to 40 pounds since diagnosed with A Fib in April
--- NOTE | 2017-11-18 13:54 | Anesthesia Preoperative Report ---
Anesthesia Preoperative Record - Date and Time Date: 11/18/17 Preoperative Diagnosis: A FIB with RVR NPO Since Date: 11/18/17 NPO Since Time: 13:25 Allergies/Adverse Reactions: Allergies Allergy/AdvReac Type Severity Reaction Status Date / Time nitrofurantoin Allergy Mild RASH Verified 11/17/17 20:20 Penicillins Allergy Mild Nausea and Verified 11/17/17 22:30 Vomiting droperidol AdvReac Severe Severe Verified 11/17/17 20:20 Chemical Imbalance and Mental Problems codeine AdvReac Mild NAUSEA Verified 11/17/17 20:20 - Vital Signs Vital Signs: Temperature 97.1 F 11/18/17 07:48 Pulse Rate 82 11/18/17 13:46 Respiratory Rate 16 11/18/17 13:46 Blood Pressure 114/66 11/18/17 13:46 Pulse Oximetry 95 11/18/17 13:46 Height and Weight: Height 1.57 m Weight 122 kg Body Mass Index 50.0 - Medications Inpatient Medications: Current Medications Alprazolam (Xanax) 1 mg PO HS [facility] Cholecalciferol (Vit. D-3) 1,000 unit PO DAILY [facility] Last Admin: 11/18/17 08:57 Dose: 1,000 unit Citalopram Hydrobromide (Celexa) 10 mg PO HS [facility] Dabigatran (Pradaxa) 150 mg PO BID [facility] Last Admin: 11/18/17 08:58 Dose: 150 mg Flecainide Acetate (Tambocor) 100 mg PO BID [facility] Glucosamine/Chondroitin (Osteo Bi-Flex) 1 cap PO BID [facility] Last Admin: 11/18/17 08:57 Dose: 1 cap Hydralazine HCl (Apresoline) 25 mg PO TID [facility] Last Admin: 11/18/17 08:58 Dose: 25 mg Labetalol HCl (Normodyne) 300 mg PO BID [facility] Last Admin: 11/18/17 08:59 Dose: 300 mg Losartan Potassium (Cozaar) 100 mg PO [facility] Multivitamins/Minerals (Vision) 1 tab PO BID [facility] Last Admin: 11/18/17 08:58 Dose: 1 tab Multivitamins/Minerals (Therapeutic - M) 1 tab PO DAILY [facility] Last Admin: 11/18/17 09:00 Dose: 1 tab Potassium Chloride (Micro-K 10 Meq Capsule) 10 meq PO TIDWM [facility] Last Admin: 11/18/17 12:41 Dose: Not Given Sodium Chloride (Iv Flush) 10 - 80 ml IVF PRN PRN PRN Reason: Flushing Last Admin: 11/17/17 21:30 Dose: 10 ml Home Medications: Home Medications Medication Instructions Recorded Confirmed Type Labetalol HCl 300 mg PO BID #0 08/07/13 11/17/17 History Glucosamine HCl/Chondr Graff A Na 1 tab PO BID #0 04/08/15 11/17/17 History [Osteo Bi-Flex Caplet] ALPRAZolam [Xanax] 1 mg PO HS 04/18/17 11/17/17 History Citalopram [Celexa] 10 mg PO HS 04/18/17 11/17/17 History Losartan [Cozaar] 100 mg PO HS 04/18/17 11/17/17 History Multivit-Min/FA/Lycopen/Lutein 1 tab PO DAILY 04/18/17 11/17/17 History [Centrum Silver Tablet] Dabigatran [Pradaxa] 150 mg PO BID #60 cap 05/07/17 11/17/17 Rx Flecainide [Tambocor] 50 mg PO BID #60 tab 05/07/17 11/17/17 Rx Potassium Chloride [MICRO-K 10 mEq 10 meq PO TIDWM #90 cap 05/07/17 11/17/17 Rx Capsule] Hydralazine [Apresoline] 25 mg PO TID 05/17/17 11/17/17 History Cholecalciferol (Vitamin D3) 1,000 unit PO DAILY 11/17/17 11/17/17 History [Vitamin D3] Vit A/Vit C/Vit E/Zinc/Copper 1 tab PO BID 11/17/17 11/17/17 History [Preservision Areds Tablet] Is Patient on Beta Tone?: No - Medical History Respiratory: Reports: Sleep Apnea, Other (pulmonary hypertension) Cardiovascular: Reports: Abnormal EKG (AFIB), Hypertension, Other (low potassium ) Gastrointestional: Reports: Hepatitis (hx), Gastrointestinal Bleeding, Morbid Obesity Neuro/Musculoskeletal: Reports: Depression Other History: Reports: Anesthesia Reactions (Enapsine-a mental reation- Committed after med) DENIES: Now - Surgical History Respiratory Surgery/Treatments: Reports: CPAP Use GI Surgery/Treatments: Reports: Cholecystectomy, Colonoscopy (with polyps removed), Other (IBS) Musculoskeletal Surgery/Tx: Reports: Knee Arthroscopy (right) Reproductive Surgery/Treatment: DENIES: Hysterectomy Anesthesia Reactions: Other Hx Family Anesthesia Reaction: No History of Motion Sickness: No - Social History Smoking Status: Former smoker Hx Chewing Tobacco Use: No Second Hand Exposure: No Quit Date: 04/26/85 Substance Use Type: does not use Alcohol Intake Frequency: former alcohol drinker - Pertinent Findings Laboratory: CBC and BMP 11/17/17 20:28 11/17/17 20:28 BMP 11/17/17 20:28 Sodium 145 Potassium 4.1 Chloride 108 H Carbon Dioxide 24 BUN 12.0 Creatinine 0.8 Glucose 111 H Calcium 9.7 Cardiac Enzymes 11/17/17 Range/Units 20:28 Troponin I < 0.012 (0-0.12) ng/ml Liver Function 11/17/17 Range/Units 20:28 Total Bilirubin 0.50 (0.20-1.30) MG/DL AST 22 (14-36) U/L ALT 23 (1-35) U/L Alkaline Phosphatase 116 (38-126) U/L Albumin 4.8 (3.5-5.0) g/dL EKG: Sinus Rhythm - Physical Exam Respiratory Exam: Present: lungs clear, bilateral breath sounds equal Cardiovascular Exam: Present: regular rate and rhythm - Airway Assessment Mallampati Score: III TMD: 3 Fingerbreadths Neck Extension: fair Overall Assessment: may be difficult mask vent, may be difficult intubation - ASA ASA Score: 3 - Plan Anesthesia: General TIVA - Discussion Discussion: Discussed risks/options/alternatives of anesthesia and questions answered. Patient consents. Nursing pain assessment noted. Attestation Statement: Prior to the delivery of any anesthetic medication, I examined the patient, developed the plan, obtained the patient's consent and discussed the risk and benefits of the procedure with the patient/guardian. - Additional Information Comments: Consulted by cardiology to assist sedate patient after large amount of sedative and narcotic given without result. unable to cardiovert d/t resistance to narcotic and sedative. Seen by Anesthesia: Yes
--- NOTE | 2017-11-18 13:55 | Anesthesia Postoperative Note ---
- Date and Time Date: 11/18/17 Time: 13:54 - Status Patient Participated in Evaluation: Patient Participated in Person Vital Signs: Temperature 97.1 F 11/18/17 07:48 Pulse Rate 82 11/18/17 13:46 Respiratory Rate 16 11/18/17 13:46 Blood Pressure 114/66 11/18/17 13:46 Pulse Oximetry 95 11/18/17 13:46 Respiratory Function: Airway Patent (bi-pap on with Sa02 > 95%), Regular Respirations Cardiovascular Function: Regular Pulse Mental Status: Alert and Oriented Pain Intensity: 0 Hydration: Taking PO Fluids Nausea/Vomiting: None Complications During Recover: None Apparent - Follow-Up Instructions Instructions: Per Surgeon
--- NOTE | 2017-11-18 16:14 | DC Cardioversion ---
DATE OF PROCEDURE 11/18/2017 PROCEDURE PERFORMED Synchronized direct current cardioversion INDICATION Ms. Pina is a 57-year-old female with history of known atrial fibrillation. She has been on flecainide, remained in atrial fibrillation. She presented to the hospital with break-through atrial fibrillation with rapid ventricular response. Her flecainide dose was increased to 100 mg twice a day. She remained in atrial fibrillation and continued to remain symptomatic. She was referred for cardioversion to maintain sinus rhythm. Patient has been on oral anticoagulation with Pradaxa for the last four weeks. PROCEDURE NARRATIVE Risks and benefits of the procedure were explained to the patient at length. Procedure was performed at the bedside. Initially we had conscious sedation was given for the procedure, total of 14 mg of intravenous midazolam and 150 mcg of intravenous Fentanyl was given. Patient remained awake. At this point, we decided to involve Anesthesia for sedation. Anesthesia arrived and intravenous propofol was given; see their notes for details. After sedation, a single synchronized shock of 200 joules was delivered and successfully converted patient to normal sinus rhythm. Patient was continuously monitored post procedure. CONCLUSION Successful synchronized direct current cardioversion from atrial fibrillation to normal sinus rhythm. RECOMMENDATION Continue oral anticoagulation indefinitely, increase dose of flecainide to 100 mg twice a day. MTDD
[2017-11-18] MEDS: FLECAINIDE 100 MG TABLET PO SCH (20:48)
[2017-11-18] MEDS ORDERED: CITALOPRAM 10 MG TABLET PO SCH (21:00)
[2017-11-18] MEDS ORDERED: ALPRAZolam 1 MG TABLET PO SCH (21:00)
[2017-11-18] MEDS ORDERED: LOSARTAN 100 MG TABLET PO SCH (21:00)
[2017-11-18] MEDS ORDERED: ALPRAZolam 0.5 MG TABLET PO SCH (21:00)
[2017-11-19 07:14] VITALS: BP 129/68; RESP 18; TEMP 97.4; O2SAT 98
[2017-11-19] MEDS: FLECAINIDE 100 MG TABLET PO SCH (08:52)
[2017-11-19] MEDS: MULTI-VIT + MINERAL (Opti-gen) TABLET PO SCH (08:52)
[2017-11-19] MEDS: LABETALOL 100 MG TABLET PO SCH (08:52)
[2017-11-19] MEDS: GLUCOSAMINE/CHONDROITIN 500 MG/400 MG CAPSULE PO SCH (08:53)
[2017-11-19] MEDS: MULTI-VITAMIN + MINERAL TABLET PO SCH (08:53)
[2017-11-19] MEDS: HYDRALAZINE 25 MG TABLET PO SCH (08:53)
[2017-11-19 09:38] VITALS: PULSE 60
--- NOTE | 2017-11-19 10:54 | Discharge Summary ---
Discharge Information Date of admission: 11/17/17 21:32 Anticipated date of discharge: 11/19/17 Attending Physician: Justin Villanueva MD Primary care physician: Leyla Reyes MD - Discharge Diagnosis (1) Atrial fibrillation with RVR Status: Acute (2) Ventricular premature depolarization Status: Chronic (3) Pulmonary hypertension Status: Chronic (4) Essential (primary) hypertension Status: Chronic (5) Sleep apnea Status: Chronic (6) Obesity, morbid, BMI 40.0-49.9 Status: Acute Atrial fibrillation - Procedures Procedures: DATE OF PROCEDURE 11/18/2017 PROCEDURE PERFORMED Synchronized direct current cardioversion INDICATION Ms. Pina is a 57-year-old female with history of known atrial fibrillation. She has been on flecainide, remained in atrial fibrillation. She presented to the hospital with break-through atrial fibrillation with rapid ventricular response. Her flecainide dose was increased to 100 mg twice a day. She remained in atrial fibrillation and continued to remain symptomatic. She was referred for cardioversion to maintain sinus rhythm. Patient has been on oral anticoagulation with Pradaxa for the last four weeks. PROCEDURE NARRATIVE Risks and benefits of the procedure were explained to the patient at length. Procedure was performed at the bedside. Initially we had conscious sedation was given for the procedure, total of 14 mg of intravenous midazolam and 150 mcg of intravenous Fentanyl was given. Patient remained awake. At this point, we decided to involve Anesthesia for sedation. Anesthesia arrived and intravenous propofol was given; see their notes for details. After sedation, a single synchronized shock of 200 joules was delivered and successfully converted patient to normal sinus rhythm. Patient was continuously monitored post procedure. CONCLUSION Successful synchronized direct current cardioversion from atrial fibrillation to normal sinus rhythm. RECOMMENDATION Continue oral anticoagulation indefinitely, increase dose of flecainide to 100 mg twice a day. - Laboratory Labs: 11/19/17 04:10 11/19/17 04:10 History of Present Illness HPI: Soren Modi is a a 57 year old female who is well known to Dr. Ruiz's practice with a history of PAF, PVCs, pulmonary HTN, MARIBEL, HTN and obesity who reportedly had been in and out of A. fib all day yesterday, and had persistent A. fib for several hours before presenting to the ED. She had a similar episode with her first A. fib/RVR back in April of this year, she is on Flecainide 50mg BID for antiarrhythmic therapy. She had a few similar episodes last month, and discussed with Dr. Ruiz about increasing her Flecainide, but since the episodes were self-limited and widely dispersed they decided not to increase her medicine at that time. She reported some sweating at home, but no dizziness , lightheadedness, chest pain or pressure, or abdominal complaints. echo 04/2017: EF 75%, biatrial dilation, LVH, mild to mod MT, mild TR, PHTN PAP 60mmHg. Echo 09/2017: EF 55-60%, LVH, NWMA, trace MR, mild TR, RVSP 22.44mmHg Hospital Course This is a general summary of the patient's hospital course. For more details refer to the complete medical record. Hospital course: Atrial fibrillation with RVR Current visit: Yes Status: Acute - History of PAF on Flecainide for AAT - Given Cardizem 25mg and 15mg IV in the ED - Given additional 50mg Flecainide - Currently rate controlled but remains in a fib - take Pradaxa for stroke prevention - DCCV this afternoon - increase Flecainide to 100mg BID - EKG in am - Monitor telemetry overnight Ventricular premature depolarization Current visit: No Status: Chronic - Continue current therapy with routine monitoring Pulmonary hypertension Current visit: No Status: Chronic - Wear C PAP as directed - echo 04/2017: EF 75%, biatrial dilation, LVH, mild to mod MT, mild TR, PHTN PAP 60mmHg. - Echo 09/2017: EF 55-60%, LVH, NWMA, trace MR, mild TR, RVSP 22.44mmHg - Continue current therapy with routine monitoring Essential (primary) hypertension Current visit: No Status: Chronic - Condition is stable - Continue current therapy with routine monitoring Sleep apnea Current visit: No Status: Chronic - PCP manages Obesity, morbid, BMI 40.0-49.9 Current visit: Yes Status: Acute - has decreased weight by close to 40 pounds since diagnosed with A Fib in April Time spent with patient: 25 - 35 minutes Resuscitation Status: Full Code Exam Vital signs: Temperature 97.4 F 11/19/17 07:13 Pulse Rate 60 11/19/17 08:00 Respiratory Rate 18 11/19/17 07:13 Blood Pressure 129/68 11/19/17 07:13 Pulse Oximetry 98 11/19/17 07:13 - Constitutional no acute distress, morbidly obese, cooperative - Routine HEENT Exam Head: Present: normocephalic - Routine Neck Exam Absent: JVD, carotid bruit - Routine Chest/Breast/Axilla Exam Chest wall: Absent: tenderness, pacemaker - Routine Respiratory Exam Present: CTA bilaterally. Absent: dyspnea, rales, wheezes - Routine Cardiovascular Exam Present: RRR, no murmur - Routine Abdominal Exam Present: soft, non tender - Routine Extremities Exam Present: no edema - Routine Skin Exam Present: intact, dry, warm - Routine Neurological Exam Present: alert, oriented X3 - Routine Psychiatric Exam Present: normal affect, normal thought process Results 11/19/17 04:10 11/19/17 04:10 CBC 11/19/17 Range/Units 04:10 WBC 7.5 (4.5-11.0) T/MM3 RBC 4.11 (4.00-5.20) M/MM3 Hgb 12.2 (12-16) GM/DL Hct 38.2 (36-46) % Plt Count 273 (130-400) T/MM3 Comprehensive Metabolic Panel 11/19/17 Range/Units 04:10 Sodium 145 (136-146) MEQ/L Potassium 3.9 (3.6-5) MEQ/L Chloride 107 (98-107) MEQ/L Carbon Dioxide 26 (22-30) MEQ/L BUN 22.0 H D (7-17) MG/DL Creatinine 0.9 (0.7-1.2) mg/dL Glucose 95 (65-110) MG/DL Calcium 9.0 (8.4-10.2) MG/DL Intake and Output 11/18/17 11/19/17 11/19/17 22:59 06:59 14:59 Intake Total 540 / 540 390 / 390 Balance 540 / 540 390 / 390 Intake: Oral 540 / 540 390 / 390 Other: # Voids 1 Weight 269 lb 2.951 oz Patient Weight 11/20/17 06:59 Weight 269 lb 2.951 oz Discharge Plan - Med Rec/Dispo Referrals/Follow Up: Chance Ruiz MD [Physician] - 2 Weeks Prescriptions: New Flecainide [Tambocor] 100 mg PO BID #60 tab Continue Glucosamine HCl/Chondr Graff A Na [Osteo Bi-Flex Caplet] 1 tab PO BID #0 ALPRAZolam [Xanax] 1 mg PO HS Citalopram [Celexa] 10 mg PO HS Losartan [Cozaar] 100 mg PO HS Multivit-Min/FA/Lycopen/Lutein [Centrum Silver Tablet] 1 tab PO DAILY Dabigatran [Pradaxa] 150 mg PO BID #60 cap Potassium Chloride [MICRO-K 10 mEq Capsule] 10 meq PO TIDWM #90 cap Hydralazine [Apresoline] 25 mg PO TID Vit A/Vit C/Vit E/Zinc/Copper [Preservision Areds Tablet] 1 tab PO BID Cholecalciferol (Vitamin D3) [Vitamin D3] 1,000 unit PO DAILY Labetalol HCl 300 mg PO BID #0 Discontinued Flecainide [Tambocor] 50 mg PO BID #60 tab - Disposition 01 Discharged Home, Self-Care - Dismissal Complete Discharge Instructions are:: Complete
== END 2017-11-19 11:40 | disposition home or self-care (01) | DRG 309 ==
LOC: EDHOLD 20:04 → ED 20:04 → MED 21:40
PROVIDERS: ADMIT Internal Medicine Interventional Cardiology; ATTEND Internal Medicine Interventional Cardiology